=== PATIENT | female | born 1950 | race Caucasian/White ===

== ENCOUNTER 2016-08-29 18:01 | Emergency (ER) | payer MEDICARE, BC ==
[2016-08-29] MEDS ORDERED: diazePAM INJ 5 MG/ML SYRINGE IVP STA (20:36)
[2016-08-29] MEDS ORDERED: PRAMIPEXOLE 0.25 MG TABLET PO STA (20:36)
[2016-08-29] MEDS ORDERED: NITROFURANTOIN MACRO 100 MG CAPSULE PO STA (21:01)
[2016-08-29] MEDS ORDERED: NITROFURANTOIN MACRO 100 MG CAPSULE PO ONE (21:04)
[2016-08-29] MEDS ORDERED: diazePAM INJ 5 MG/ML SYRINGE ONE (21:04)
== END 2016-08-29 21:26 | disposition home or self-care (01) ==
DX: R53.82 Chronic fatigue, unspecified (principal); N30.90 Cystitis, unspecified without hematuria; R06.00 Dyspnea, unspecified; G25.81 Restless legs syndrome; E03.9 Hypothyroidism, unspecified; D64.9 Anemia, unspecified; Z91.14 Patient's other noncompliance with medication regimen
CPT/HCPCS: 36415; 71020; 80053; 81001; 83690; 84484; 85025; 85379; 87086; 93005; 93010; 96374; 99283; 99284; A9270

== ENCOUNTER 2016-11-17 18:12 | Emergency (ER) | payer MEDICARE, BC ==
[2016-11-17] MEDS ORDERED: ACETAMINOPHEN 325 MG TABLET PO STA (18:31)
[2016-11-17] MEDS ORDERED: ACETAMINOPHEN 325 MG TABLET PO ONE (18:38)
[2016-11-17] MEDS ORDERED: HYDROcod/ACET 5/325 Prepack 6 PO STA (20:04)
[2016-11-17] MEDS ORDERED: HYDROcod/ACET 5/325 Prepack 6 PO ONE (20:06)
== END 2016-11-17 20:12 | disposition home or self-care (01) ==
DX: S50.01XA Contusion of right elbow, initial encounter (principal); W11.XXXA Fall on and from ladder, initial encounter; Y92.018 Other place in single-family (private) house as the place of occurrence of the external cause; R03.0 Elevated blood-pressure reading, without diagnosis of hypertension; Z98.84 Bariatric surgery status; M79.7 Fibromyalgia; E03.9 Hypothyroidism, unspecified; Z98.1 Arthrodesis status
CPT/HCPCS: 70450; 72100; 72125; 73070; 99283; 99284; A9270

== ENCOUNTER 2016-11-25 22:10 | Emergency (ER) | payer MEDICARE, BC ==
[2016-11-25] MEDS ORDERED: LORazepam 0.5 MG TABLET PO STA (22:45)
[2016-11-25] MEDS ORDERED: LORazepam 0.5 MG TABLET ONE (22:51)
[2016-11-25] MEDS ORDERED: diazePAM INJ 5 MG/ML SYRINGE IM STA (23:48)
[2016-11-25] MEDS ORDERED: diazePAM INJ 5 MG/ML SYRINGE ONE (23:56)
[2016-11-26] MEDS ORDERED: HYDROmorphone 1 MG/ML SYRINGE IM STA (00:43)
[2016-11-26] MEDS ORDERED: HYDROmorphone 1 MG/ML SYRINGE ONE (00:44)
[2016-11-26] MEDS ORDERED: HYDROcod/ACET 5/325 Prepack 6 PO STA (01:56)
[2016-11-26] MEDS ORDERED: HYDROcod/ACET 5/325 Prepack 6 PO ONE (01:59)
== END 2016-11-26 02:09 | disposition home or self-care (01) ==
DX: G25.81 Restless legs syndrome (principal); T42.8X6A Underdosing of antiparkinsonism drugs and other central muscle-tone depressants, initial encounter; Z91.138 Patient's unintentional underdosing of medication regimen for other reason; E03.9 Hypothyroidism, unspecified; M79.7 Fibromyalgia
CPT/HCPCS: 81003; 96372; 99283; 99284; A9270; J1170

== ENCOUNTER 2016-12-24 10:51 | Outpatient (CLI) | payer MEDICARE, BC | END 2016-12-24 10:52 | disposition home or self-care (01) | DX: K90.9 Intestinal malabsorption, unspecified (principal); E03.9 Hypothyroidism, unspecified; Z98.84 Bariatric surgery status; D50.9 Iron deficiency anemia, unspecified ==

== ENCOUNTER 2017-01-11 11:05 | Emergency (ER) | payer MEDICARE, BC ==
--- NOTE | 2017-01-11 13:23 | ED Physician Documentation ---
PD HPI CHEST PAIN - Stated complaint Stated Complaint: SOA/CHEST PRESSURE - Chief complaint Chief Complaint: Cardiac - History obtained from History obtained from: Patient, Family - History of Present Illness Timing - onset: How many months ago (5) Timing - onset during: Light activity Timing - duration: Minutes Timing - details: Abrupt onset, Waxing and waning Quality: Pressure, Tightness Location: Substernal Improved by: Rest Worsened by: Exertion Associated symptoms: Shortness of air Similar symptoms before: No diagnosis Recently seen: Clinic (Seen in the clinic recently and has had an iron infusion done yesterday) - Additional information Additional information: 66 y/o female with a history of gastric bypass has developed exertional dyspnea and chest pressure that is reproducible and predictable. This had not changed in the past 4-5 months. She did get an iron infusion yesterday in the [facility] clinic and today she as hurting all over. When she called the clinic and told them about the pains she was told that this was expected but not the shortness of breath and they have asked her to come to the ED for evaluation. She has had a treadmill test done in [facility] in 2014 and she reports she was told she had afib. Review of Systems Constitutional: reports: Myalgias. denies: Fever, Chills Eyes: denies: Decreased vision Ears: denies: Ear pain Nose: denies: Rhinorrhea / runny nose, Congestion Throat: denies: Sore throat Cardiac: reports: Chest pain / pressure. denies: Palpitations, Pedal edema, Calf pain Respiratory: reports: Dyspnea. denies: Cough, Wheezing GI: denies: Abdominal Pain, Nausea, Vomiting : denies: Dysuria, Frequency Skin: denies: Rash Musculoskeletal: denies: Neck pain, Back pain, Extremity pain Neurologic: reports: Generalized weakness. denies: Focal weakness PD PAST MEDICAL HISTORY - Past Medical History Cardiovascular: None Respiratory: None Neuro: None Endocrine/Autoimmune: HyPOthyroidism GI: Diverticulitis INDUSTRIAL ECONOMIST: None : None HEENT: None Psych: Depression Musculoskeletal: Fibromyalgia Derm: None - Past Surgical History Past Surgical History: Yes General: Appendectomy, Gastric surgery Ortho: Knee replacement, Carpal Tunnel surgery, Spine surgery /INDUSTRIAL ECONOMIST: Hysterectomy - Present Medications Home Medications: Ambulatory Orders Medication Instructions Recorded Confirmed clonazePAM [KlonoPIN] 1 mg PO QPM PRN 04/28/16 11/25/16 Dextroamphetamine/Amphetamine 20 mg PO BID 06/14/16 11/25/16 [Adderall Xr 20 mg Capsule] Levothyroxine Sodium 125 mcg PO DAILY 06/14/16 11/25/16 Ergocalciferol [Vitamin D2] 50,000 unit PO Q7D #30 capsule 08/29/16 11/25/16 Furosemide [Lasix] 10 mg PO PRN 01/10/17 Gabapentin 300 mg PO DAILY 01/11/17 01/11/17 Ropinirole HCl [Ropinirole ER] 0.25 mg PO DAILY 01/11/17 01/11/17 - Allergies Allergies/Adverse Reactions: Allergies Allergy/AdvReac Type Severity Reaction Status Date / Time Penicillins Allergy Hives Verified 01/11/17 11:10 - Social History Does the pt smoke?: No Smoking Status: Never smoker Does the pt drink ETOH?: No Does the pt have substance abuse?: No - Immunizations Immunizations are current?: Yes - POLST Patient has POLST: No PD ED PE NORMAL - Vitals Vital signs reviewed: Yes (diastolic hypertension ) - General General: Alert and oriented X 3, Well developed/nourished, Other (teary eyed) - HEENT HEENT: Atraumatic, PERRL, EOMI - Neck Neck: Supple, no meningeal sign, No bony TTP - Cardiac Cardiac: RRR, No murmur - Respiratory Respiratory: No respiratory distress, Clear bilaterally, Other (no chest wall tenderness) - Abdomen Abdomen: Soft, Non tender - Back Back: No CVA TTP, No spinal TTP - Derm Derm: Normal color, Warm and dry, No rash - Extremities Extremities: No deformity, No edema - Neuro Neuro: No motor deficit, No sensory deficit - Psych Psych: Other (mood is helpless and the affect is flat ) Results - Vitals Vitals: Vital Signs - 24 hr 01/11/17 01/11/17 01/11/17 11:07 13:26 14:30 Temperature 36.5 C Heart Rate 85 71 72 Respiratory 18 12 16 Rate Blood Pressure 119/81 H 144/91 H 141/92 H O2 Saturation 100 97 95 01/11/17 15:15 Temperature Heart Rate 89 Respiratory 16 Rate Blood Pressure 125/76 O2 Saturation 96 Oxygen O2 Source Room air - EKG (time done) 1122 Rate: Rate (enter#) (77) Rhythm: NSR Ischemia: Normal ST segments Compare to prior EKG: Unchanged from prior EKG (08-29-16) Computer interpretation: Agree with computer - Labs Labs: Laboratory Tests 01/11/17 01/11/17 01/11/17 11:25 11:25 11:25 WBC 5.1 RBC 3.61 L Hgb 8.5 L Hct 27.1 L MCV 75.0 L MCH 23.5 L MCHC 31.3 L RDW 15.9 H Plt Count 249 MPV 9.4 Neut # 2.8 Lymph # 1.4 L [place] # 0.6 Eos # 0.2 Baso # 0.1 Absolute Nucleated RBC 0.00 Nucleated RBCs 0.1 Sodium 141 Potassium 3.9 Chloride 109 Carbon Dioxide 25 Anion Gap 7.0 BUN 15 Creatinine 0.6 Estimated GFR (MDRD) 101 Glucose 68 L Calcium 9.3 Total Bilirubin 0.9 AST 24 ALT 12 Alkaline Phosphatase 133 H Troponin I < 0.04 B-Natriuretic Peptide Total Protein 7.0 Albumin 3.8 Globulin 3.2 Albumin/Globulin Ratio 1.2 Lipase 20 L 01/11/17 11:25 WBC RBC Hgb Hct MCV MCH MCHC RDW Plt Count MPV Neut # Lymph # [place] # Eos # Baso # Absolute Nucleated RBC Nucleated RBCs Sodium Potassium Chloride Carbon Dioxide Anion Gap BUN Creatinine Estimated GFR (MDRD) Glucose Calcium Total Bilirubin AST ALT Alkaline Phosphatase Troponin I B-Natriuretic Peptide 133 H Total Protein Albumin Globulin Albumin/Globulin Ratio Lipase - Rads (name of study) 2 view chest Radiology: Prelim report reviewed (Impression: Stable examination with no acute or significant abnormality.), EMP read indepedently, See rad report PD MEDICAL DECISION MAKING - ED course Complexity details: reviewed old records, reviewed results, re-evaluated patient , considered differential, d/w patient, d/w family ED course: 66 y/o female with an iron infusion yesterday for chronic anemia has overall body aches today and does not feel well. She is here today because when she called about the pains she was having she was referred here as she has chest pain and shortness of breath. The chest pain and shortness of breath appear unchanged by history of months and this does seem to be an anginal equivalent. I have recommended she see a waredresser about this and we treated her discomfort from the iron infusion with decadron and toradal. Departure - Departure Disposition: 01 Home, Self Care Clinical Impression: Stable angina Anemia Qualifiers: Anemia type: iron deficiency Iron deficiency anemia type: inadequate dietary iron intake Qualified Code(s): D50.8 - Other iron deficiency anemias Condition: Stable Instructions: ED Chest Pain Angina Stable, ED Anemia Iron Deficiency Follow-Up: Ailin Melendez ARNP [Primary Care Provider] - Comments: Talk to your doctor about a referral to the waredresser for evaluation. Discharge Date/Time: 01/11/17 15:16
--- NOTE | 2017-01-11 13:50 | XRAY Preliminary Report ---
Exam: XR Chest 2 View PA/LAT IMPRESSION: Stable examination with no acute or significant abnormality. [id number]
--- NOTE | 2017-01-11 13:52 | XRAY Report ---
EXAM: CHEST RADIOGRAPHY EXAM DATE: 01/11/2017 01:41 PM. CLINICAL HISTORY: Dyspnea, chest pressure. COMPARISON: CHEST RADIOGRAPHY 08/29/2016. TECHNIQUE: 2 views. FINDINGS: Lungs/Pleura: No focal opacities evident. No pleural effusion. No pneumothorax. No vascular congestio n. Normal volumes. Mediastinum: Heart and mediastinal contours are unremarkable. Other: Upper lumbar posterior instrumental fusion. Bilateral shoulder surgeries. IMPRESSION: Stable examination with no acute or significant abnormality. [facility] Referring Provider Line: [phone] SITE ID: [id number]
[2017-01-11 14:00] LABS: BASOPHILS # (AUTO) 0.1 10^3/uL (0.0-0.1); BASOPHILS % (AUTO) 1.3 %; EOSINOPHILS # (AUTO) 0.2 10^3/uL (0.0-0.7); EOSINOPHILS % (AUTO) 3.5 %; HCT - HEMATOCRIT 27.1 % (37.0-47.0); HGB - HEMOGLOBIN 8.5 g/dL (12.0-16.0); LYMPHOCYTES # (AUTO) 1.4 10^3/uL (1.5-3.5); LYMPHOCYTES % (AUTO) 27.1 %; MEAN CORPUSCULAR HEMOGLOBIN 23.5 pg (27.0-31.0); MEAN CORPUSCULAR HGB CONC 31.3 g/dL (32.0-36.0); MEAN PLATELET VOLUME 9.4 fL (7.9-10.8); MONOCYTES # (AUTO) 0.6 10^3/uL (0.0-1.0); MONOCYTES % (AUTO) 12.1 %; NEUTROPHILS # (AUTO) 2.8 10^3/uL (1.5-6.6); NUCLEATED RED BLOOD CELLS AUTO 0.1 /100WBC; RED BLOOD COUNT 3.61 10^6/uL (4.20-5.40); RED CELL DISTRIBUTION WIDTH 15.9 % (12.0-15.0); UNCORRECTED WHITE BLOOD COUNT 5.1 x10^3/uL; WHITE BLOOD COUNT 5.1 x10^3/uL (4.8-10.8)
[2017-01-11 14:10] LABS: ALBUMIN/GLOBULIN RATIO 1.2 (1.0-2.2); BILIRUBIN,TOTAL 0.9 mg/dL (0.2-1.0); CALCIUM 9.3 mg/dL (8.5-10.3); CREATININE 0.6 mg/dL (0.4-1.0); POTASSIUM 3.9 mmol/L (3.5-5.0)
[2017-01-11] MEDS ORDERED: DEXAMETHASONE 10 MG/ML VIAL IVP STA (14:34)
[2017-01-11] MEDS ORDERED: KETOROLAC 60 MG/2 ML VIAL IVP STA (14:39)
[2017-01-11] MEDS ORDERED: DEXAMETHASONE 10 MG/ML VIAL ONE (14:40)
[2017-01-11] MEDS ORDERED: KETOROLAC 30 MG/ML VIAL ONE (14:40)
[2017-01-11 15:16] VITALS: BP 125/76
== END 2017-01-11 15:16 | disposition home or self-care (01) ==
LOC: ED 11:05
DX: I20.8 Other forms of angina pectoris (principal); I10 Essential (primary) hypertension; E03.9 Hypothyroidism, unspecified; D50.8 Other iron deficiency anemias; F32.9 Major depressive disorder, single episode, unspecified; Z98.84 Bariatric surgery status; Z98.0 Intestinal bypass and anastomosis status; Z90.710 Acquired absence of both cervix and uterus; Z88.0 Allergy status to penicillin; Z96.659 Presence of unspecified artificial knee joint
CPT/HCPCS: 36415; 71020; 80053; 83690; 83880; 84484; 85025; 93005; 93010; 96374; 96375; 99283; 99284

== ENCOUNTER 2017-02-12 09:20 | Outpatient (CLI) | payer MEDICARE, BC ==
[2017-02-12 18:18] LABS: BASOPHILS # (AUTO) 0.1 10^3/uL (0.0-0.1); BASOPHILS % (AUTO) 1.2 %; EOSINOPHILS # (AUTO) 0.1 10^3/uL (0.0-0.7); EOSINOPHILS % (AUTO) 1.3 %; HCT - HEMATOCRIT 37.9 % (37.0-47.0); LYMPHOCYTES # (AUTO) 1.5 10^3/uL (1.5-3.5); LYMPHOCYTES % (AUTO) 27.6 %; MEAN CORPUSCULAR HEMOGLOBIN 28.2 pg (27.0-31.0); MEAN CORPUSCULAR HGB CONC 31.6 g/dL (32.0-36.0); MEAN CORPUSCULAR VOLUME 89.4 fL (81.0-99.0); MEAN PLATELET VOLUME 8.3 fL (7.9-10.8); MONOCYTES # (AUTO) 0.3 10^3/uL (0.0-1.0); MONOCYTES % (AUTO) 6.4 %; NEUTROPHILS # (AUTO) 3.4 10^3/uL (1.5-6.6); NEUTROPHILS % (AUTO) 63.5 %; NUCLEATED RED BLOOD CELLS AUTO 0.2 /100WBC; RED BLOOD COUNT 4.24 10^6/uL (4.20-5.40); RED CELL DISTRIBUTION WIDTH 27.6 % (12.0-15.0); UNCORRECTED WHITE BLOOD COUNT 5.3 x10^3/uL; WHITE BLOOD COUNT 5.3 x10^3/uL (4.8-10.8)
[2017-02-12 18:23] LABS: ALBUMIN/GLOBULIN RATIO 1.5 (1.0-2.2); BILIRUBIN,TOTAL 0.4 mg/dL (0.2-1.0); CALCIUM 9.8 mg/dL (8.5-10.3); CREATININE 0.8 mg/dL (0.4-1.0); MAGNESIUM 1.9 mg/dL (1.7-2.8); POTASSIUM 4.9 mmol/L (3.5-5.0); TOTAL PROTEIN 7.6 g/dL (6.7-8.2)
[2017-02-12 18:51] LABS: PLATELET ESTIMATE, MANUAL NORMAL (130-450,000) (NORMAL); PLATELET MORPHOLOGY NORMAL APPEARANCE (NORMAL)
== END 2017-02-12 09:21 | disposition home or self-care (01) ==
LOC: LAB.F 09:20
PROVIDERS: ATTEND Internal Medicine
DX: R25.2 Cramp and spasm (principal); D50.9 Iron deficiency anemia, unspecified
CPT/HCPCS: 36415; 80053; 83735; 84443; 85025

== ENCOUNTER 2017-03-21 10:24 | Outpatient (CLI) | payer MEDICARE, BC ==
[2017-03-21] MEDS ORDERED: ADENOSINE 90 MG/30 ML VIAL IVP ONE (13:15)
--- NOTE | 2017-03-21 15:31 | CARDIAC PROCEDURE NOTE ---
DATE OF SERVICE: 03/21/2017 00:00:00 PRIMARY CARE PROVIDER: Dr. Martínez PROCEDURE: Pharmacologic stress test. PROCEDURE SYMPTOMS: Chest pain. PREVIOUS CARDIAC RISK FACTORS: Include age and family history. PREVIOUS CARDIAC PROCEDURES: Stress test 7 years ago. CLINICAL HISTORY: A 66-year-old female without known coronary artery disease. INITIAL RESTING VITAL SIGNS: Blood pressure 120/76, heart rate 63, height 66 inches, weight 175 pounds, BMI 28.24. PROCEDURE AND FINDINGS: The patient's identity and date identified. Consent signed. Safety stop. Pharmacological stress testing was performed with adenosine at a dose of 140 mcg/kg/minute over 6 minutes. The heart rate increased to 85 beats per minute from the infusion. Blood pressure response was normal during the stress procedure. The patient developed symptoms which included chest pressure and generalized unpleasant feelings. The symptoms resolved spontaneously. The resting ECG demonstrated normal sinus rhythm with no ST or T-wave abnormalities. There was no ST segment depression. There was one PAC. FINAL IMPRESSIONS: 1. Negative electrocardiogram for ischemia in the setting of vasodilator stress. 2. Nondiagnostic stress test for angina. 3. One PAC noted. 4. Await myocardial perfusion report. JOB #: [id number] EXT JOB #:[id number] [facility]
[2017-03-21 18:21] VITALS: BP 120/76
== END 2017-03-21 10:25 | disposition home or self-care (01) ==
LOC: DI 10:24
PROVIDERS: ATTEND Internal Medicine
DX: R07.89 Other chest pain (principal); Z96.9 Presence of functional implant, unspecified; G89.18 Other acute postprocedural pain
CPT/HCPCS: 78452; 93017; A9500; J0153

== ENCOUNTER 2017-05-01 09:45 | Emergency (ER) | payer MEDICARE, BC ==
[2017-05-01] MEDS ORDERED: SODIUM CHLORIDE FLUSH 0.9% 10 ML SYRINGE IVP ONE ×3 (11:50→19:16)
[2017-05-01] MEDS ORDERED: SODIUM CHLORIDE 0.9% 1,000 ML IV ONE (11:51)
[2017-05-01] MEDS ORDERED: LIDOCAINE PATCH 5% TOP STA (11:55)
[2017-05-01] MEDS ORDERED: oxyCOD/ACETAMIN 5 MG/325 MG TABLET PO STA (11:55)
[2017-05-01 11:58] LABS: BILIRUBIN,URINE NEGATIVE (NEGATIVE); UA w/ MICROSCOPIC CHARGE YES
[2017-05-01 11:59] LABS: UR CULTURE IF IND NOT INDICATED; WBC,URINE >25 /HPF (0-5)
[2017-05-01 12:15] LABS: BASOPHILS # (AUTO) 0.1 10^3/uL (0.0-0.1); BASOPHILS % (AUTO) 1.4 %; EOSINOPHILS # (AUTO) 0.1 10^3/uL (0.0-0.7); EOSINOPHILS % (AUTO) 0.9 %; HGB - HEMOGLOBIN 13.1 g/dL (12.0-16.0); LYMPHOCYTES # (AUTO) 1.8 10^3/uL (1.5-3.5); LYMPHOCYTES % (AUTO) 28.1 %; MEAN CORPUSCULAR HEMOGLOBIN 32.6 pg (27.0-31.0); MEAN CORPUSCULAR HGB CONC 33.5 g/dL (32.0-36.0); MEAN CORPUSCULAR VOLUME 97.2 fL (81.0-99.0); MEAN PLATELET VOLUME 7.4 fL (7.9-10.8); MONOCYTES # (AUTO) 0.5 10^3/uL (0.0-1.0); MONOCYTES % (AUTO) 8.1 %; NEUTROPHILS # (AUTO) 3.9 10^3/uL (1.5-6.6); NEUTROPHILS % (AUTO) 61.5 %; RED BLOOD COUNT 4.01 10^6/uL (4.20-5.40); UNCORRECTED WHITE BLOOD COUNT 6.3 x10^3/uL; WHITE BLOOD COUNT 6.3 x10^3/uL (4.8-10.8)
[2017-05-01] MEDS ORDERED: ONDANSETRON ODT 4 MG TABLET TL STA (12:18)
[2017-05-01] MEDS ORDERED: HYDROmorphone 1 MG/ML SYRINGE IM STA (12:18)
[2017-05-01] MEDS ORDERED: LORazepam 2 MG/ML SYRINGE IM STA (12:18)
[2017-05-01] MEDS ORDERED: HYDROmorphone 1 MG/ML SYRINGE ONE ×2 (12:24→13:24)
[2017-05-01] MEDS ORDERED: LORazepam 2 MG/ML SYRINGE ONE ×3 (12:25→18:12)
[2017-05-01 12:27] LABS: ALBUMIN/GLOBULIN RATIO 1.3 (1.0-2.2); BILIRUBIN,TOTAL 0.4 mg/dL (0.2-1.0); CALCIUM 9.2 mg/dL (8.5-10.3); CREATININE 0.8 mg/dL (0.4-1.0); POTASSIUM 4.7 mmol/L (3.5-5.0); TOTAL PROTEIN 7.2 g/dL (6.7-8.2)
--- NOTE | 2017-05-01 12:32 | ED Physician Documentation ---
History of Present Illness - Stated complaint Stated Complaint: BACK PAIN - Chief complaint Chief Complaint: Back Pain - Additonal information Additional information: hx from pt 2 CC 1) chronic back pain s/p fusion and diskectomies in [facility] 2004, increasing pain for months, loss f rectal sensation and fecal incont for at least a month, numbness to LLE laterally to upper fibula region and oswald great toes for at last a month, sx getting worse, now with subj fever and chills, states recently moved from [place] (but has numerous ER and PMD visits here), has no back specialist here 2) also NVD for days to a week, no blood, no bad food, no antibiotics, no sick contacts feels generally weak and lousy addendum - during ER stay she also developed a VELASQUEZ and chest pain Review of Systems Constitutional: reports: Fatigue. denies: Fever, Chills Cardiac: denies: Chest pain / pressure Respiratory: denies: Dyspnea, Cough GI: reports: Abdominal Pain (diffuse), Nausea, Vomiting, Diarrhea, Other (fecal incont) : denies: Dysuria Musculoskeletal: reports: Back pain Neurologic: reports: Numbness. denies: Focal weakness Endocrine: denies: Easy bruising / bleeding Immunocompromised: denies: Immunocompromised PD PAST MEDICAL HISTORY - Past Medical History Past Medical History: Yes Cardiovascular: None Respiratory: None Neuro: None Endocrine/Autoimmune: HyPOthyroidism GI: Diverticulitis UNDERWEAR CUTTER: None : None HEENT: None Psych: Depression, Anxiety, Panic attacks, ADD/ADHD Musculoskeletal: Fibromyalgia, Chronic back pain Derm: None - Past Surgical History Past Surgical History: Yes General: Cholecystectomy, Appendectomy, Gastric surgery Ortho: Knee replacement, Carpal Tunnel surgery, Spine surgery /UNDERWEAR CUTTER: Hysterectomy HEENT: Cataracts - Present Medications Home Medications: Ambulatory Orders Medication Instructions Recorded Confirmed clonazePAM [KlonoPIN] 1 mg PO QPM PRN 04/28/16 11/25/16 Dextroamphetamine/Amphetamine 20 mg PO BID 06/14/16 11/25/16 [Adderall Xr 20 mg Capsule] Levothyroxine Sodium 125 mcg PO DAILY 06/14/16 11/25/16 Ergocalciferol [Vitamin D2] 50,000 unit PO Q7D #30 capsule 08/29/16 11/25/16 Furosemide [Lasix] 10 mg PO PRN 01/10/17 Gabapentin 300 mg PO DAILY 01/11/17 01/11/17 Ropinirole HCl [Ropinirole ER] 0.25 mg PO DAILY 01/11/17 01/11/17 - Allergies Allergies/Adverse Reactions: Allergies Allergy/AdvReac Type Severity Reaction Status Date / Time Penicillins Allergy Hives Verified 01/11/17 11:10 - Social History Does the pt smoke?: No Smoking Status: Never smoker Does the pt drink ETOH?: No Does the pt have substance abuse?: No - Immunizations Immunizations are current?: Yes - POLST Patient has POLST: No PD ED PE NORMAL - Vitals Vital signs reviewed: Yes - General General: Alert and oriented X 3, Other (dry MM) - HEENT HEENT: PERRL - Neck Neck: Supple, no meningeal sign - Cardiac Cardiac: RRR, No murmur - Respiratory Respiratory: No respiratory distress, Clear bilaterally - Abdomen Abdomen: Soft, Other (mild diffuse TTP s rebound or guarding, no pulsatile mass appreciated) - Rectal Rectal: Other (see nuero exam, dec sensation) - Back Back: Other (extensive surgical scars, no forcal erythema or swelling or warmth , most tender over T10-T12 but through L5, limited ROM due to pain and fusion) - Derm Derm: Normal color - Extremities Extremities: No edema - Neuro Neuro: Alert and oriented X 3, No motor deficit, Other (decreased sensation inner buttocks and lateral L thigh, hip flexion, knee ext, foot dorsi plantar and great toe ext 5/5, no clonus, no leg pain with SLR but hurts her back). No : No sensory deficit Results - Vitals Vitals: Vital Signs - 24 hr 05/01/17 05/01/17 05/01/17 09:58 14:10 16:50 Temperature 36.6 C 36.1 C L Heart Rate 88 102 H 80 Respiratory 18 18 Rate Blood Pressure 115/60 161/100 H O2 Saturation 99 99 100 Oxygen O2 Source Room air - EKG (time done) 1449 Rate: Rate (enter#) Rhythm: NSR Intervals: Normal AL Ischemia: Normal ST segments - Labs Labs: Laboratory Tests 05/01/17 05/01/17 05/01/17 11:40 12:01 12:01 WBC 6.3 RBC 4.01 L Hgb 13.1 Hct 39.0 MCV 97.2 MCH 32.6 H MCHC 33.5 RDW 14.0 Plt Count 210 MPV 7.4 L Neut # 3.9 Lymph # 1.8 [place] # 0.5 Eos # 0.1 Baso # 0.1 Absolute Nucleated RBC 0.00 Nucleated RBCs 0.0 Sodium 139 Potassium 4.7 Chloride 104 Carbon Dioxide 29 Anion Gap 6.0 BUN 18 Creatinine 0.8 Estimated GFR (MDRD) 72 L Glucose 92 Calcium 9.2 Total Bilirubin 0.4 AST 25 ALT 16 Alkaline Phosphatase 102 Total Protein 7.2 Albumin 4.1 Globulin 3.1 Albumin/Globulin Ratio 1.3 Lipase 29 Urine Color YELLOW Urine Clarity CLOUDY Urine pH 6.0 Ur Specific [place] >=1.030 H Urine Protein NEGATIVE Urine Glucose (UA) NEGATIVE Urine Ketones TRACE Urine Occult Blood LARGE H Urine Nitrite NEGATIVE Urine Bilirubin NEGATIVE Urine Urobilinogen 1 (NORMAL) Ur Leukocyte Esterase MODERATE H Urine RBC 11-25 H Urine WBC >25 H Ur Squamous Epith Cells MOD Squamous H Urine Bacteria Moderate H Urine Mucus Few Strands Ur Microscopic Review INDICATED Urine Culture Comments NOT INDICATED - Rads (name of study) MRI T spine Radiology: See rad report (degen changes T9T10, intraforaminal disk herniations with potentially sig forminal stenosis L > R, no sig central canal stenosis or cord impingement, abn enhancement and edema in forminae and bone on both sides of arthritic disk space could be reactive 2/2 degen changes also consider infection and consider short term interval MRI, no abscess, prom) KUB Radiology: See rad report (no stones appreciated) CXR Radiology: See rad report (CP SOA) MRI L spine Radiology: See rad report (no sig central stonosis or cauda equina, prom defmormity and stenosis neural foramina oswald at L5S1 L > R, prom anterlolisthesis L5 on S1, degen disk dz and facet arthropathy, minimal non specific thickening of the ventral epidural space in the midline behind T12 vetebral body could be degen (or infectious per t spine report), extensive artifact from hardwar, no clear abscess or tumor, extensive signal and morphologic abn at the posterior paravertebral soft tissues including musculature at and below levels of surgery are non specific and potentially post op changes) PD MEDICAL DECISION MAKING - ED course ED course: pt went to MRI promptly but needed multiple dose of pain meds and anxiety meds to get her through the study upon return from MRI she developed a VELASQUEZ, then CP and SOA as well chart review indicates pt has been seen and evaluated for CP several times this year and had a neg myocardial perfusion scan in the last 4-6 weeks EKG not acute, trop unlikely to help for chest pain that started minutes ago, CXR neg CP resolved VELASQUEZ subsided spont is now mild, R frontal, feels like tension per pt diarrhea seems to have resolved - pt unable to provide sample UA + for some blood (KUB showed no stones, CT will to much artifact to be useful ) and some WBC and leuk est but large epis and pt denies urinary sx so would wait on culture before deciding if ab are needed so the only ongoing sig issue is the back pain with neuro deficits and subj fever / chills MRI T and L spine abnormal - see reports - also d/w rads - per verbal edema to bone marrow T9/10 looks more degen than infectious and there is minimal dural enhancement, T 12 disk extension also appears more likely degen than infection, and the extensive ST changes L2 down could be fatty atrophy and deinvertion changes after a large fusion but the radiologist was surprised by to see much signal this long after surgery pain still severe despite IV dilaudid given that pt has hard neuro sx will call [facility] or other tertiary care facility and req to transfer pt for a landscaping specialist to evaluate spoke to neuro at [facility] who reviewed the images and did not see anything that would explain the neuro sx pt complained of and found on exam - did agree with rad rec that rpt imaging in a few days might be helpful - was agreeable to having pt come to a teritary care facility for further work up and specialty care / eval not avail at our critical access hospital bu rec pt go to medicine service and so hospitalist accepts pt in transfer Departure - Departure Disposition: 02 Transfer Acute Care Hosp Clinical Impression: Saddle anesthesia, Abnormal MRI Back pain Qualifiers: Back pain location: low back pain Chronicity: unspecified Back pain laterality : midline Sciatica presence: unspecified whether sciatica present Qualified Code (s): M54.5 - Low back pain Fecal incontinence Qualifiers: Fecal incontinence type: unspecified Qualified Code(s): R15.9 - Full incontinence of feces Comments: Yir blood pressure was high and there is some blood in your urine - both these concerns will need further work up by your PMD Also you may have a urine infection - a culture is pending and we will call you if antibiotics are needed Discharge Date/Time: 05/01/17 19:34
[2017-05-01] MEDS ORDERED: HYDROmorphone 1 MG/ML SYRINGE IVP STA ×2 (12:41→13:13)
[2017-05-01] MEDS ORDERED: LORazepam 2 MG/ML SYRINGE IVP STA ×3 (12:41→17:58)
[2017-05-01] MEDS ORDERED: GADOBUTROL 7.5 MMOL/7.5 ML VIAL IVP ONE (13:33)
[2017-05-01] MEDS ORDERED: ONDANSETRON ODT 4 MG TABLET ONE (14:02)
[2017-05-01] MEDS ORDERED: LIDOCAINE PATCH 5% TOP ONE (14:15)
[2017-05-01] MEDS ORDERED: oxyCOD/ACETAMIN 5 MG/325 MG TABLET PO ONE (14:15)
--- NOTE | 2017-05-01 14:23 | MRI Preliminary Report ---
Exam: MRI Lumbar Spine W/WO Impression: 1. No significant lumbar central stenosis. 2. Prominent deformity and stenosis of neural foramina bilaterally at L5-S1 left greater than right. 3. Prominent anterolisthesis of L5 on S1 where there are findings of prominent degenerative disk dise ase and facet arthropathy. 4. Minimal nonspecific thickening of the ventral epidural space in the midline behind the T12 vertebr al body, this may be degenerative but there is no neural impingement. 5. Extensive magnetic susceptibility artifact from multilevel implanted fusion hardware. 6. No clear evidence for enhancing tumor or abscess. 7. Extensive signal and morphologic abnormality of the posterior paravertebral soft tissues including musculature, most evident at and below the levels of surgery, nonspecific potentially postoperative changes. [facility] SITE ID: [id number]
--- NOTE | 2017-05-01 14:26 | MRI Report ---
EXAM: MRI LUMBAR SPINE WITHOUT AND WITH CONTRAST EXAM DATE: 05/01/2017 12:30 PM. CLINICAL HISTORY: Back pain. Prior lumbar fusions and diskectomies. COMPARISONS: No prior MRI. TECHNIQUE: Multiplanar, multisequence T1-weighted and fluid-sensitive sequences of the lumbar spine f rom T12 to S1 before and after administration of intravenous contrast. IV contrast: Without a 5.5 mm Gadavist. Other: None. FINDINGS: Detailed evaluation is significantly limited by the presence of implanted metallic spinal fusion hard mcnally at multiple levels. Posterior celso and screw fusion hardware is present at L1, L2, L3, L4 and L5 levels. Interbody fusion cages or spacers are present in the intervertebral disk spaces at L2-L3, L3-L4 and L4-L5. The thoracic cord terminates without Conus impingement at T12-L1. Minimal residual L1 on L2 retrolist hesis. More prominent anterior subluxation by at least 1 cm of L5 on S1. No evidence for acute marrow edema or vertebral body collapse. No significant lumbar central stenosis. No cauda equina impingement. Minimal midline ventral epidural thickening extending upward from the T12-L1 disk space along the russel k wall of the T12 vertebral body. This extends up to 15 mm above the disk space level but is only 2 m m in thickness without significant mass effect, this is nonspecific. A small upward migrating disk he rniation might give this appearance. Prominent degenerative disk disease and facet arthropathy at L5-S1. Moderate to severe deformity and narrowing of both foramina at this level, left greater than right. No other clear evidence for significant lumbar stenosis allowing for extensive susceptibility artifac t from implanted metal hardware. Prominent diffuse posterior paraspinal muscle fatty atrophy and signal abnormality that is nonspecifi c and consistent with scar associated with previous surgery. No clear evidence for focal enhancing tumor mass or abscess. Impression: 1. No significant lumbar central stenosis. 2. Prominent deformity and stenosis of neural foramina bilaterally at L5-S1 left greater than right. 3. Prominent anterolisthesis of L5 on S1 where there are findings of prominent degenerative disk dise ase and facet arthropathy. 4. Minimal nonspecific thickening of the ventral epidural space in the midline behind the T12 vertebr al body, this may be degenerative but there is no neural impingement. 5. Extensive magnetic susceptibility artifact from multilevel implanted fusion hardware. 6. No clear evidence for enhancing tumor or abscess. 7. Extensive signal and morphologic abnormality of the posterior paravertebral soft tissues including musculature, most evident at and below the levels of surgery, nonspecific potentially postoperative changes. [facility] Referring Provider Line: [phone] SITE ID: [id number]
--- NOTE | 2017-05-01 14:42 | MRI Preliminary Report ---
Exam: MRI Thoracic Spine W/WO IMPRESSION: 1. Prominent degenerative changes are present at the T9-T10 level. Intraforaminal disk herniations ar e present with potentially significant foraminal stenosis left greater than right. No significant andres tral stenosis or cord impingement. There is abnormal enhancement and edema in the foramina and bone o n both sides of the arthritic disk space. While these findings likely represent reactive change secon kendra to degenerative arthritis, similar findings can be seen with infection and if there is additiona l concern for spine infection, short interval MRI follow-up could be considered. 2. No evidence for abscess. 3. Prominent multilevel degenerative thoracic spinal spondylosis with stenosis at multiple levels is present as detailed level by level above. 4. Mild broad-based thoracic dextroscoliosis. [facility] SITE ID: [id number]
--- NOTE | 2017-05-01 14:56 | XRAY Preliminary Report ---
Exam: XR Chest 1 View IMPRESSION: Grossly clear lungs. [facility] SITE ID: [id number]
--- NOTE | 2017-05-01 14:58 | XRAY Report ---
EXAM: CHEST RADIOGRAPHY EXAM DATE: 05/01/2017 02:43 PM. CLINICAL HISTORY: Chest pain soa. COMPARISON: 01/11/2017. TECHNIQUE: 1 view. FINDINGS: Lungs/Pleura: No focal opacities evident. No pleural effusion. No pneumothorax. Mediastinum: Within exam limitations, cardiomediastinal contour is normal. Other: Surgical screws in the bilateral humeral heads. IMPRESSION: Grossly clear lungs. [facility] Referring Provider Line: [phone] SITE ID: [id number]
--- NOTE | 2017-05-01 14:59 | MRI Report ---
EXAM: MRI THORACIC SPINE WITHOUT AND WITH CONTRAST EXAM DATE: 05/01/2017 01:59 p.m. CLINICAL HISTORY: Back pain reportedly from T10 through L5. Diarrhea. Previous multilevel lumbar fusi on. COMPARISONS: None. TECHNIQUE: Multiplanar, multisequence T1-weighted and fluid-sensitive sequences of the thoracic spine from C7 to L1 before and after administration of intravenous contrast. IV contrast: Without and with 5.5 mL Gadavist. Other: None. FINDINGS: Spinal Cord: No signal abnormality in the visualized spinal cord. Alignment: No focal malalignment. Mild broad-based dextroscoliosis centered at about the T8 level, ap proximately 15 degrees. Bone Marrow: Patchy and confluent edema with enhancement on both sides of the T9-T10 disk space, asym metric, most prominent laterally on the left. Disk Levels/Facets: C7-T1: Mild degenerative disk disease. Moderate facet arthropathy. Shallow bulging disk. Patent centr al canal. At least mild bilateral foraminal stenosis. T1-T2: Moderate degenerative disk disease. T2 superior endplate Schmorl's node, anterior marginal spu rring and a broad-based bulge. Minimal central stenosis. No cord impingement. Moderate facet arthropa thy. Intraforaminal extension of the broad-based bulge contributing to bilateral foraminal stenosis t hat may be moderate to severe, potentially worse on the right than the left. T2-T3: Mild degenerative disk disease. Minimal facet arthropathy. Right paracentral posterior disk pr otrusion with extension laterally into the inferior aspect of the right neural foramen. Foraminal marce nosis is mild. Negligible central canal narrowing. Patent left foramen. T3-T4: Mild degenerative changes including a shallow disk bulge to the right of midline. Mild right f oraminal stenosis. T4-T5: Mild degenerative disk disease and facet arthropathy but no focal extrusion or significant marce nosis. T5-T6: Mild degenerative changes including right, greater than left, facet arthropathy but no focal e xtrusion or evidence for significant stenosis. T6-T7: Mild degenerative changes. No stenosis. T7-T8: Mild degenerative changes but no significant stenosis. T8-T9: Mild to moderate degenerative disk disease. Shallow bulging disk with marginal spurring, asymm etric, more prominent to the left of midline. Mild facet arthropathy. Patent central canal and right foramen. Mild left foraminal stenosis. T9-T10: Disk space narrowing. Mild endplate irregularity. Marginal spurring. Broad-based disk bulge. Additional asymmetric intraforaminal disk herniation on the left. Mild central stenosis without cord compression from paracentral disk protrusions. Mild facet arthropathy. Foraminal stenosis is minimal on the right but at least moderate on the left. Edema and enhancement on both sides of the arthritic disk space are present, asymmetric, left greater than right. No accompanying paravertebral fluid jeff ection or inflammatory changes. No abnormal epidural fluid collection. There is increased enhancement in both foramina, left greater than right. This is notably accompanying the left intraforaminal disk herniation. T10-T11: Mild degenerative disk disease. Moderate facet arthropathy, left greater than right. Broad-b ased disk bulge is present with extension laterally into both foramina. Minimal central stenosis with out cord compression. Moderate to severe foraminal stenosis bilaterally especially on the left. T11-T12: Mild degenerative disk disease. Moderately prominent facet arthropathy. No focal disk extrus ion or significant stenosis. T12-L1: Mild degenerative disk disease. Moderate facet arthropathy. No significant stenosis. Mild luisa tral epidural space thickening behind the T12 vertebral body in the midline, nonspecific, a small dis k herniation might give this appearance, but there is no significant mass-effect or impingement of th e adjacent conus. Spinal Canal: No enhancing masses within the spinal canal. No epidural abscess. Musculature: Mild diffuse posterior paraspinal muscle fatty atrophy. Other: Multiple portions of this examination are significantly motion limited, including axial images . IMPRESSION: 1. Prominent degenerative changes are present at the T9-T10 level. Intraforaminal disk herniations ar e present with potentially significant foraminal stenosis, left greater than right. No significant ce ntral stenosis or cord impingement. There is abnormal enhancement and edema in the foramina and on yogesh th sides of the arthritic disk space. While these findings likely represent reactive change secondary to degenerative arthritis, similar findings can be seen with infection, and if there is additional c oncern for spine infection, short interval MRI follow-up could be considered. 2. No evidence for abscess. 3. Prominent multilevel degenerative thoracic spinal spondylosis with stenosis at multiple levels is present as detailed level by level above. 4. Mild broad-based thoracic dextroscoliosis. [facility] Referring Provider Line: [phone] SITE ID: [id number]
--- NOTE | 2017-05-01 15:42 | XRAY Preliminary Report ---
Exam: XR Abdomen 1 View IMPRESSION: Previous lumbar spine fusion. No acute abnormality. [facility] SITE ID: [id number]
--- NOTE | 2017-05-01 15:45 | XRAY Report ---
EXAM: ABDOMEN RADIOGRAPHY EXAM DATE: 05/01/2017 03:27 PM. CLINICAL HISTORY: UTI hematuria back pain. COMPARISON: None. TECHNIQUE: 1 view. FINDINGS: Bowel Gas Pattern: There is scattered gas within the bowel. There is a nonobstructive bowel gas patte rn. There are surgical clips in the right upper quadrant of the abdomen. No definite kidney stones. Other: Previous multilevel spine fusion hardware. There is a calcified phlebolith in the left pelvis which appears unchanged. IMPRESSION: Previous lumbar spine fusion. No acute abnormality. [facility] Referring Provider Line: [phone] SITE ID: [id number]
[2017-05-01 16:54] VITALS: BP 161/100
[2017-05-01] MEDS ORDERED: ACETAMINOPHEN 1,000 MG/100 ML 100 ML IV STA (17:04)
[2017-05-01] MEDS ORDERED: ACETAMINOPHEN 1,000 MG/100 ML 100 ML IV ONE (17:43)
== END 2017-05-01 19:34 | disposition short-term general hospital (02) ==
LOC: ED 09:45
DX: M54.5 Low back pain (principal); R15.9 Full incontinence of feces; R03.0 Elevated blood-pressure reading, without diagnosis of hypertension; G89.29 Other chronic pain; Z98.1 Arthrodesis status; Z96.659 Presence of unspecified artificial knee joint
CPT/HCPCS: 36415; 71010; 72157; 72158; 74000; 80053; 80306; 81001; 83690; 85025; 93005; 96361; 96374; 96375; 96376; 99283; 99284; A9270; A9585; J0131; J1170; J2060; Q0162; 81003; 87086

== ENCOUNTER 2017-05-01 19:23 | Outpatient (CLI) | payer MEDICARE, BC | END 2017-05-01 19:24 | disposition short-term general hospital (02) | LOC: EMS 19:23 | PROVIDERS: ATTEND Surgery | DX: M54.9 Dorsalgia, unspecified (principal) | CPT/HCPCS: A0170; A0425; A0426 ==

== ENCOUNTER 2017-06-02 15:33 | Emergency (ER) | payer MEDICARE, BC ==
[2017-06-02 15:49] VITALS: BP 119/85
--- NOTE | 2017-06-02 15:54 | ED Physician Documentation ---
PD HPI BACK PAIN - Stated complaint Stated Complaint: BACK PX - Chief complaint Chief Complaint: Back Pain - History obtained from History obtained from: Patient - History of Present Illness Timing - onset: How many days ago (chronic pain but worse the past several days without injury nor obvious preciiptating factor.) Location: Lower Quality: Pain, Aching Associated symptoms: No: Fever, Weakness, Numbness, Incontinent of urine Improves with: Rest (but still hurts when sitting) Worsened by: Movement, Twisting Contributing factors: No: Anticoagulated, Cancer Similar symptoms before: Diagnosis (prior low back surgery and has chronic pain there with radiation to legs.) Recently seen: Clinic (2 days ago and had increase of her gabapentin from 300 to 600 mg but no other meds/ no pain meds. Patient had a prior Fentanyl patch that she placed today and has not helped as yet. Had been to [facility] April due to concern of back pain and possible infection. She says she was there a few days and then discharged. No surgical interventions availalbe per pateint (Spine had seen her there). She did not get any abx. No new meds. Pain baseline 4-5/10 and the past couple days is 8/10. No new injury. 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 : None HEENT: None Psych: Depression, Anxiety, Panic attacks, ADD/ADHD Musculoskeletal: Fibromyalgia, Chronic back pain Derm: None - Past Surgical History Past Surgical History: Yes General: Cholecystectomy, Appendectomy, Gastric surgery Ortho: Knee replacement, Carpal Tunnel surgery, Spine surgery /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 MACHINE OPERATOR HELPER: Hysterectomy HEENT: Cataracts - Present Medications Home Medications: Ambulatory Orders Medication Instructions Recorded Confirmed clonazePAM [KlonoPIN] 1 mg PO QPM PRN 04/28/16 11/25/16 Dextroamphetamine/Amphetamine 20 mg PO BID 06/14/16 11/25/16 [Adderall Xr 20 mg Capsule] Levothyroxine Sodium 125 mcg PO DAILY 06/14/16 11/25/16 Ergocalciferol [Vitamin D2] 50,000 unit PO Q7D #30 capsule 08/29/16 11/25/16 Gabapentin 300 mg PO DAILY 01/11/17 01/11/17 Ropinirole HCl [Ropinirole ER] 0.25 mg PO DAILY 01/11/17 01/11/17 Dexamethasone [Decadron] 4 mg PO DAILY #5 tablet 06/02/17 Oxycodone HCl/Acetaminophen 1 each PO TID #30 tablet 06/02/17 [Percocet 7.5-325 mg Tablet] - Allergies Allergies/Adverse Reactions: Allergies Allergy/AdvReac Type Severity Reaction Status Date / Time Penicillins Allergy Hives Verified 06/02/17 15:42 - Social History Does the pt smoke?: No Smoking Status: Never smoker Does the pt drink ETOH?: No Does the pt have substance abuse?: No - Immunizations Immunizations are current?: Yes - POLST Patient has POLST: No PD ED PE NORMAL - Vitals Vital signs reviewed: Yes - General General: Alert and oriented X 3, Well developed/nourished, Other (appears uncomfortable and expresses frustration about lack of pain meds from PCP/ specialists. ) - Abdomen Abdomen: Soft, Non tender - Back Back: No CVA TTP, No spinal TTP, Other (tender in muscles low back both sides. ) - Derm Derm: Normal color, Warm and dry, No rash - Extremities Extremities: Normal ROM s pain, No edema - Neuro Neuro: Alert and oriented X 3, No motor deficit, Normal speech Results - Vitals Vitals: Vital Signs - 24 hr 06/02/17 15:38 Temperature 36.6 C Heart Rate 79 Respiratory 18 Rate Blood Pressure 119/85 H O2 Saturation 100 Oxygen O2 Source Room air PD MEDICAL DECISION MAKING - ED course Complexity details: reviewed old records, reviewed results, considered differential, d/w patient Departure - Departure Disposition: 01 Home, Self Care Clinical Impression: Acute exacerbation of chronic low back pain Sciatica Qualifiers: Laterality: unspecified laterality Qualified Code(s): M54.30 - Sciatica, unspecified side Condition: Stable Record reviewed to determine appropriate education?: Yes Instructions: ED Low Back Pain Injury Follow-Up: Tammy Quiroz MD [Primary Care Provider] - Prescriptions: Dexamethasone [Decadron] 4 mg PO DAILY #5 tablet Oxycodone HCl/Acetaminophen [Percocet 7.5-325 mg Tablet] 1 each PO TID #30 tablet Comments: Continue your current medications. Use oxycodone 3 times a day as needed for pain. Also add anti-inflammatory Decadron for 5 days for possible inflammation causing the increase over your usual pain. Follow-up with your primary care to continue with the pain treatments and they may consider referral to a pain clinic as well. Discharge Date/Time: 06/02/17 16:12
== END 2017-06-02 16:12 | disposition home or self-care (01) ==
LOC: ED 15:33
DX: M54.5 Low back pain (principal); G89.29 Other chronic pain; E03.9 Hypothyroidism, unspecified; Z96.659 Presence of unspecified artificial knee joint
CPT/HCPCS: 99283

== ENCOUNTER 2017-08-11 12:36 | Emergency (ER) | payer MEDICARE, BC ==
[2017-08-11 12:59] LABS: BASOPHILS # (AUTO) 0.1 10^3/uL (0.0-0.1); BASOPHILS % (AUTO) 1.1 %; EOSINOPHILS # (AUTO) 0.1 10^3/uL (0.0-0.7); EOSINOPHILS % (AUTO) 1.6 %; HCT - HEMATOCRIT 38.2 % (37.0-47.0); HGB - HEMOGLOBIN 13.1 g/dL (12.0-16.0); MEAN CORPUSCULAR HEMOGLOBIN 33.4 pg (27.0-31.0); MEAN CORPUSCULAR HGB CONC 34.1 g/dL (32.0-36.0); MEAN CORPUSCULAR VOLUME 97.8 fL (81.0-99.0); MEAN PLATELET VOLUME 7.1 fL (7.9-10.8); MONOCYTES # (AUTO) 0.6 10^3/uL (0.0-1.0); MONOCYTES % (AUTO) 7.9 %; NEUTROPHILS # (AUTO) 4.6 10^3/uL (1.5-6.6); NEUTROPHILS % (AUTO) 62.4 %; RED BLOOD COUNT 3.91 10^6/uL (4.20-5.40); RED CELL DISTRIBUTION WIDTH 13.3 % (12.0-15.0); UNCORRECTED WHITE BLOOD COUNT 7.4 x10^3/uL; WHITE BLOOD COUNT 7.4 x10^3/uL (4.8-10.8)
[2017-08-11 13:10] LABS: ALBUMIN/GLOBULIN RATIO 1.5 (1.0-2.2); BILIRUBIN,TOTAL 0.6 mg/dL (0.2-1.0); CALCIUM 9.4 mg/dL (8.5-10.3); CREATININE 0.9 mg/dL (0.4-1.0); POTASSIUM 4.5 mmol/L (3.5-5.0); TOTAL PROTEIN 7.6 g/dL (6.7-8.2)
--- NOTE | 2017-08-11 14:09 | ED Physician Documentation ---
PD HPI ABD PAIN - Stated complaint Stated Complaint: DIARRHEA/WEAK - Chief complaint Chief Complaint: Abd Pain - History obtained from History obtained from: Patient - History of Present Illness Timing - onset: How many days ago (2-3) Timing - duration: Days (2-3) Timing - details: Abrupt onset, Still present Quality: Cramping, Aching Location: All over / everywhere, Periumbilical Improved by: No: Eating, Vomiting Worsened by: Eating, Palpation Associated symptoms: Nausea, Vomiting, Diarrhea, Loss of appetite. No: Fever, Melena, Dysuria, Hematuria, Chest pain, Near syncope / syncope Similar symptoms before: Has not had sx before Recently seen: Not recently seen Review of Systems Constitutional: reports: Chills, Myalgias. denies: Fever Nose: denies: Rhinorrhea / runny nose, Congestion Throat: denies: Sore throat GI: reports: Nausea, Vomiting, Diarrhea. denies: Bloody / black stool : denies: Dysuria, Frequency Skin: denies: Rash, Lesions Neurologic: reports: Generalized weakness. 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 CLEANER: Hysterectomy HEENT: Cataracts - Present Medications Home Medications: Ambulatory Orders Medication Instructions Recorded Confirmed clonazePAM [KlonoPIN] 1 mg PO QPM PRN 04/28/16 11/25/16 Dextroamphetamine/Amphetamine 20 mg PO BID 06/14/16 11/25/16 [Adderall Xr 20 mg Capsule] Levothyroxine Sodium 125 mcg PO DAILY 06/14/16 11/25/16 Ergocalciferol [Vitamin D2] 50,000 unit PO Q7D #30 capsule 08/29/16 11/25/16 Gabapentin 300 mg PO DAILY 01/11/17 01/11/17 Ropinirole HCl [Ropinirole ER] 0.25 mg PO DAILY 01/11/17 01/11/17 Dexamethasone [Decadron] 4 mg PO DAILY #5 tablet 06/02/17 Oxycodone HCl/Acetaminophen 1 each PO TID #30 tablet 06/02/17 [Percocet 7.5-325 mg Tablet] Diphenoxylate HCl/Atropine 1 each PO Q6H PRN #12 tablet 08/11/17 [Diphenoxylate-Atrop 2.5-0.025] HYDROcod/ACETAM 5/325 [Barton 5/325] 1 tab PO Q6H PRN #12 tablet 08/11/17 Ondansetron Odt [Zofran] 4 mg TL Q6H PRN #15 tablet 08/11/17 - Allergies Allergies/Adverse Reactions: Allergies Allergy/AdvReac Type Severity Reaction Status Date / Time Penicillins Allergy Hives Verified 08/11/17 12:42 - Social History Does the pt smoke?: No Smoking Status: Never smoker Does the pt drink ETOH?: No Does the pt have substance abuse?: No - Immunizations Immunizations are current?: Yes - POLST Patient has POLST: No PD ED PE NORMAL - Vitals Vital signs reviewed: Yes - General General: Alert and oriented X 3, Well developed/nourished - HEENT HEENT: Ears normal, Pharynx benign. No: Moist mucous membranes - Neck Neck: Supple, no meningeal sign, No adenopathy - Cardiac Cardiac: RRR, No murmur - Respiratory Respiratory: Clear bilaterally - Abdomen Abdomen: Soft, Non distended, No organomegaly, Other (some tenderness centrally without guarding nor distension. ). No: Normal bowel sounds (diminished) - Female Female : Deferred - Rectal Rectal: Deferred - Back Back: No CVA TTP - Derm Derm: Normal color, No rash - Neuro Neuro: Alert and oriented X 3, No motor deficit, Normal speech Results - Vitals Vitals: Oxygen O2 Source Room air - Labs Labs: Laboratory Tests 08/11/17 08/11/17 08/11/17 12:40 12:53 12:53 WBC 7.4 RBC 3.91 L Hgb 13.1 Hct 38.2 MCV 97.8 MCH 33.4 H MCHC 34.1 RDW 13.3 Plt Count 243 MPV 7.1 L Neut # 4.6 Lymph # 2.0 [place] # 0.6 Eos # 0.1 Baso # 0.1 Absolute Nucleated RBC 0.00 Nucleated RBC % 0.0 Sodium 138 Potassium 4.5 Chloride 103 Carbon Dioxide 26 Anion Gap 9.0 BUN 23 H Creatinine 0.9 Estimated GFR (MDRD) 63 L Glucose 145 H Calcium 9.4 Total Bilirubin 0.6 AST 26 ALT 18 Alkaline Phosphatase 107 Total Protein 7.6 Albumin 4.5 Globulin 3.1 Albumin/Globulin Ratio 1.5 Lipase 24 Influenza A (Rapid) Negative Influenza B (Rapid) Negative Influenza Types A,B Ag - - Rads (name of study) abd CT Radiology: Prelim report reviewed (no acute process; stable size of intrahepatic ducts (enlarged). ), EMP read contemporaneously PD MEDICAL DECISION MAKING - ED course Complexity details: re-evaluated patient (seems improved with IV fluids and meds. No acute on CT nor labs, so presume viral GE or such. ), considered differential, d/w patient Departure - Departure Disposition: 01 Home, Self Care Clinical Impression: Nausea vomiting and diarrhea Abdominal pain Qualifiers: Abdominal location: generalized Qualified Code(s): R10.84 - Generalized abdominal pain Condition: Stable Record reviewed to determine appropriate education?: Yes Instructions: ED Abdominal Pain Unkn Cause, ED Nausea Vomiting Follow-Up: Tammy Quiroz MD [Primary Care Provider] - Prescriptions: Diphenoxylate HCl/Atropine [Diphenoxylate-Atrop 2.5-0.025] 1 each PO Q6H PRN # 12 tablet PRN Reason: Diarrhea HYDROcod/ACETAM 5/325 [Barton 5/325] 1 tab PO Q6H PRN #12 tablet PRN Reason: Pain Ondansetron Odt [Zofran] 4 mg TL Q6H PRN #15 tablet PRN Reason: Nausea / Vomiting Comments: Your CT scan did not show any significant abnormality. There are things that will not show on that such as a viral stomach flu. This may be what is going on and presumably that should improve in the next day or 2. Use ondansetron if needed for nausea. Small frequent fluids. Lomotil if needed for diarrhea. Add Tylenol or hydrocodone if needed for pain. Recheck if not improved over the next couple of days. Return sooner if worse. Discharge Date/Time: 08/11/17 17:14
[2017-08-11] MEDS ORDERED: ONDANSETRON 4 MG/2 ML VIAL IVP STA (14:25)
[2017-08-11] MEDS ORDERED: KETOROLAC 60 MG/2 ML VIAL IVP STA (14:25)
[2017-08-11] MEDS: SODIUM CHLORIDE 0.9% 1,000 ML IV ONE ×2 (14:33→15:40)
[2017-08-11] MEDS ORDERED: IOPAMIDOL-300 100 ML VIAL ONE (14:34)
[2017-08-11] MEDS: HYDROmorphone 1 MG/ML SYRINGE IVP STA ×2 (14:36→15:40)
[2017-08-11] MEDS ORDERED: IOPAMIDOL-300 100 ML VIAL IVP ONE (15:02)
[2017-08-11] MEDS ORDERED: SODIUM CHLORIDE 0.9% 1,000 ML IV ONE (15:27)
[2017-08-11] MEDS ORDERED: HYDROmorphone 1 MG/ML SYRINGE IVP STA (15:27)
--- NOTE | 2017-08-11 15:42 | CT Report ---
EXAM: CT ABDOMEN AND PELVIS EXAM DATE: 08/11/2017 03:01 PM. CLINICAL HISTORY: Mid abd pain and diarrhea. COMPARISONS: Abdomen and pelvis CT 05/15/2016. TECHNIQUE: Routine helical CT imaging was performed through the abdomen and pelvis. IV contrast: 100M L OF ISOVUE 300. Enteric contrast: No. Reconstructions: Coronal and sagittal. In accordance with CT protocol optimization, one or more of the following dose reduction techniques w ere utilized for this exam: automated exposure control, adjustment of mA and/or KV based on patient s ize, or use of iterative reconstructive technique. FINDINGS: Lung Bases: Mild bibasilar dependent atelectasis. Normal heart size. No pericardial effusion. Bilateral breast implants. Liver: Normal parenchyma Gallbladder/Bile Ducts: Post cholecystectomy. Stable moderate central intrahepatic biliary ductal dil atation. Dilatation of the common bile duct up to 13 mm, stable when remeasured. Common bile duct tap ers normally distally. Spleen: Normal. Pancreas: Normal. Adrenal Glands: Normal. Kidneys: Hypoattenuating foci in the kidneys, too small to definitively characterize, statistically c ysts. Peritoneal Cavity/Bowel: Stable changes of prior gastric surgery. Small and large bowel normal in allen iber without evidence of inflammation or obstruction. No ascites or pneumoperitoneum. Surgical clip o r calcification at the umbilicus, new. Heterotopic ossification and linear soft tissue attenuation at the flanks/buttocks right greater than left may be related to sequelae of prior procedure/trauma. Pelvic Organs: Normal urinary bladder Vasculature: Moderate aortobiiliac atherosclerosis without aneurysm Bones: Posterior diskectomy and instrument spinal fusion procedure of L1-L5 with paired vertical rods , pedicular screws L1-L5 and interbody bone cages L2-L3 through L4-L5. Severe degenerative disk disea se L5-S1 with grade 2 anterolisthesis of L5 on S1, stable. Stable 5 mm retrolisthesis L1 on L2, stab le mild dextrocurvature of the thoracic spine and mild levocurvature of the lumbar spine. Other: None. IMPRESSION: 1. No acute abnormality on abdomen and pelvis CT. 2. Unchanged moderate intra-and extrahepatic biliary ductal dilatation, which may be related to the p atient's postcholecystectomy state. If there is clinical/laboratory evidence of biliary obstruction, further evaluation may be obtained with MRCP. 3. Prior gastric surgery. [facility] Referring Provider Line: [phone] SITE ID: [id number]
[2017-08-11 17:01] VITALS: BP 141/81
== END 2017-08-11 17:14 | disposition home or self-care (01) ==
LOC: ED 12:36
DX: R11.2 Nausea with vomiting, unspecified (principal); R19.7 Diarrhea, unspecified; E03.9 Hypothyroidism, unspecified; Z96.659 Presence of unspecified artificial knee joint
CPT/HCPCS: 36415; 74177; 80053; 83690; 85025; 87275; 87276; 96361; 96374; 96375; 99283; 99284; J1170; Q9967

== ENCOUNTER 2017-12-06 08:06 | Outpatient (CLI) | payer MEDICARE, BC ==
--- NOTE | 2017-12-09 13:13 | DEXA Report ---
DEXA SCAN: INDICATION: Postmenopausal. TECHNIQUE: Dual energy x-ray absorptiometry (DXA) was performed on a [employer] system. Regions measured are the AP spine, femoral neck, and, if needed, forearm. COMPARISON: None. In accordance with the International Society for Clinical Densitometry (ISCD) guidelines, data from previous exams may be reanalyzed using current recommendations and techniques. This is done to allow a more accurate basis for comparison with the current study. FINDINGS Data for the lumbar spine is as follows: N/A. Data for the hip is as follows: REGION BMD (g/cm/cm) T-SCORE Z-SCORE Neck 0.897 -1.0 0.1 TOTAL 0.904 -0.8 -0.1 NOTE: The femoral neck or total proximal femur, whichever is lowest, is used for classification. Data for the forearm is as follows: REGION BMD (g/cm/cm) T-SCORE Z-SCORE 1/3 0.671 -2.3 -1.0 NOTE: The 33% radius of the nondominant forearm is used for classification. IMPRESSION 1. WHO CLASSIFICATION BASED ON THE INTERNATIONAL REFERENCE STANDARD IS OSTEOPENIA. FRACTURE RISK IS INCREASED. 2. LUMBAR SPINE WAS EXCLUDED FROM EVALUATION DUE TO SPINAL FUSION HARDWARE. RECOMMENDATION: Patients with diagnosis of osteoporosis or osteopenia should have regular bone mineral density assessment. For those eligible for Medicare, routine testing is allowed once every 2 years. Testing frequency can be increased for patients who have rapidly progressing disease or for those who are receiving medical therapy to restore bone mass. COMMENT World Health Organization (WHO) definitions for osteoporosis and osteopenia: NORMAL BMD: T-score at 1.0 or higher, fracture risk is low. OSTEOPENIA BMD: T-score between 1.0 and -2.5, fracture risk is increased. OSTEOPOROSIS BMD: T-score at 2.5 or lower, fracture risk high. National Osteoporosis Foundation recommends: 1. Obtain adequate dietary calcium (at least 1200 mg per day) and vitamin D (400 -800 international units per day). 2. Participate, as appropriate, in regular weightbearing and muscle- strengthening exercise. 3. Avoid tobacco use and reduce alcohol and caffeine intake. 4. For more detailed information see the website at www.NOF.org. TD: 12/06/2017 15:24 [facility]
== END 2017-12-06 08:07 | disposition home or self-care (01) ==
LOC: DI 08:06
PROVIDERS: ATTEND Internal Medicine
DX: Z13.820 Encounter for screening for osteoporosis (principal); M85.89 Other specified disorders of bone density and structure, multiple sites; N95.8 Other specified menopausal and perimenopausal disorders; E55.9 Vitamin D deficiency, unspecified; Z98.1 Arthrodesis status
CPT/HCPCS: 77080; 77081

== ENCOUNTER 2017-12-23 08:03 | Emergency (ER) | payer MEDICARE, BC ==
[2017-12-23] MEDS ORDERED: SODIUM CHLORIDE 0.9% 1,000 ML IV ONE (09:08)
[2017-12-23] MEDS ORDERED: DEXAMETHASONE 10 MG/ML VIAL IVP STA (09:08)
[2017-12-23] MEDS ORDERED: cefTRIAXone 1 GM in SODIUM CHLORIDE 0.9% MINIBAG 100 ML IV STA (09:08)
--- NOTE | 2017-12-23 09:12 | ED Physician Documentation ---
PD HPI NVD - Stated complaint Stated Complaint: DIZZY/VOMITING - Chief complaint Chief Complaint: General - History obtained from History obtained from: Patient, Family - History of Present Illness Timing - onset: Enter time (0700), Today Timing - duration: Minutes Timing - details: Abrupt onset, Still present Associated symptoms: Other (dizziness) Contributing factors: No: Bad food, Recent antibiotics, Alcohol use Improved by: Laying still Similar symptoms before: No diagnosis Recently seen: Clinic - Additonal information Additional information: 67-year-old female with a prior history of gastric bypass presents to the emergency department with her this morning after developing an episode of dizziness associated with nausea and vomiting this morning at 0700. She relates that she has had a recent upper respiratory infection about a week ago that seemed to clear after about 3 days. She has been into see her primary care doctor Dr. Andres Palacio for routine visits 2 days ago. She is complained of some dizziness that is been present for 5-6 months that is intermittent. This morning she has dizziness and a headache as well. Review of Systems Constitutional: denies: Fever Eyes: denies: Decreased vision, Photophobia Ears: denies: Ear pain Nose: reports: Rhinorrhea / runny nose, Congestion Throat: reports: Sore throat Cardiac: denies: Chest pain / pressure, Palpitations Respiratory: reports: Cough. 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 : None HEENT: None Psych: Depression, Anxiety, Panic attacks, ADD/ADHD Musculoskeletal: Fibromyalgia, Chronic back pain Derm: None - Past Surgical History Past Surgical History: Yes General: Cholecystectomy, Appendectomy, Gastric surgery Ortho: Knee replacement, Carpal Tunnel surgery, Spine surgery /AIRCRAFT INSTRUMENT TESTER: Hysterectomy HEENT: Cataracts - Present Medications Home Medications: Ambulatory Orders Medication Instructions Recorded Confirmed clonazePAM [KlonoPIN] 1 mg PO QPM PRN 04/28/16 11/25/16 Dextroamphetamine/Amphetamine 20 mg PO BID 06/14/16 11/25/16 [Adderall Xr 20 mg Capsule] Levothyroxine Sodium 125 mcg PO DAILY 10/27/16 04/09/17 Ergocalciferol [Vitamin D2] 50,000 unit PO Q7D #30 capsule 08/29/16 11/25/16 Gabapentin 300 mg PO DAILY 01/11/17 01/11/17 Ropinirole HCl [Ropinirole ER] 0.25 mg PO DAILY 01/11/17 01/11/17 Dexamethasone [Decadron] 4 mg PO DAILY #5 tablet 06/02/17 Oxycodone HCl/Acetaminophen 1 each PO TID #30 tablet 06/02/17 [Percocet 7.5-325 mg Tablet] Diphenoxylate HCl/Atropine 1 each PO Q6H PRN #12 tablet 08/11/17 [Diphenoxylate-Atrop 2.5-0.025] HYDROcod/ACETAM 5/325 [[place] 5/325] 1 tab PO Q6H PRN #12 tablet 08/11/17 Ondansetron Odt [Zofran] 4 mg TL Q6H PRN #15 tablet 08/11/17 Azithromycin [Zithromax] 250 mg PO DAILY #6 tablet 12/23/17 Meclizine HCl 25 mg PO Q6HR PRN #20 tab.chew 12/23/17 Ondansetron Odt [Zofran] 4 mg TL Q6H PRN #10 tablet 12/23/17 - Allergies Allergies/Adverse Reactions: Allergies Allergy/AdvReac Type Severity Reaction Status Date / Time Penicillins Allergy Hives Verified 08/11/17 12:42 - Social History Does the pt smoke?: No Smoking Status: Never smoker Does the pt drink ETOH?: No Does the pt have substance abuse?: No - Immunizations Immunizations are current?: Yes - POLST Patient has POLST: No PD ED PE NORMAL - Vitals Vital signs reviewed: Yes (hypertensive) - General General: Alert and oriented X 3, No acute distress, Well developed/nourished - HEENT HEENT: Atraumatic, PERRL, EOMI, Other (The left TM is markedly inflamed with rounding of the landmarks. She has minimal nystagmus bilaterally ) - Neck Neck: Supple, no meningeal sign, No bony TTP - Cardiac Cardiac: RRR, No murmur - Respiratory Respiratory: No respiratory distress, Clear bilaterally - Abdomen Abdomen: Soft, Non tender - Back Back: No CVA TTP, No spinal TTP - Derm Derm: Normal color, Warm and dry, No rash - Extremities Extremities: No deformity, No edema - Neuro Neuro: No motor deficit, No sensory deficit Eye Opening: Spontaneous Motor: Obeys Commands Verbal: Oriented GCS Score: 15 - Psych Psych: Normal mood, Normal affect Results - Vitals Vitals: Vital Signs - 24 hr 12/23/17 12/23/17 12/23/17 08:09 10:11 10:38 Temperature 36.2 C L Heart Rate 79 86 77 Respiratory 18 18 16 Rate Blood Pressure 160/111 H 98/59 L 144/85 H O2 Saturation 98 99 100 Oxygen O2 Source Room air - Labs Labs: Laboratory Tests 12/23/17 12/23/17 12/23/17 09:18 09:18 09:18 WBC 7.3 RBC 3.88 L Hgb 12.8 Hct 37.5 MCV 96.5 MCH 33.0 H MCHC 34.2 RDW 13.5 Plt Count 231 MPV 7.5 L Neut # 5.7 Lymph # 1.1 L Long # 0.4 Eos # 0.0 Baso # 0.1 Absolute Nucleated RBC 0.00 Nucleated RBC % 0.0 Sodium 135 Potassium 4.1 Chloride 100 L Carbon Dioxide 27 Anion Gap 8.0 BUN 14 Creatinine 0.6 Estimated GFR (MDRD) 100 Glucose 102 H Calcium 9.2 Total Bilirubin 0.7 AST 24 ALT 12 Alkaline Phosphatase 96 Troponin I < 0.04 Total Protein 7.4 Albumin 4.1 Globulin 3.3 Albumin/Globulin Ratio 1.2 Lipase 17 L Urine Color Urine Clarity Urine pH Ur Specific [place] Urine Protein Urine Glucose (UA) Urine Ketones Urine Occult Blood Urine Nitrite Urine Bilirubin Urine Urobilinogen Ur Leukocyte Esterase Ur Microscopic Review Urine Culture Comments 12/23/17 09:20 WBC RBC Hgb Hct MCV MCH MCHC RDW Plt Count MPV Neut # Lymph # Long # Eos # Baso # Absolute Nucleated RBC Nucleated RBC % Sodium Potassium Chloride Carbon Dioxide Anion Gap BUN Creatinine Estimated GFR (MDRD) Glucose Calcium Total Bilirubin AST ALT Alkaline Phosphatase Troponin I Total Protein Albumin Globulin Albumin/Globulin Ratio Lipase Urine Color YELLOW Urine Clarity CLEAR Urine pH 6.0 Ur Specific [place] 1.020 Urine Protein NEGATIVE Urine Glucose (UA) NEGATIVE Urine Ketones NEGATIVE Urine Occult Blood NEGATIVE Urine Nitrite NEGATIVE Urine Bilirubin NEGATIVE Urine Urobilinogen 0.2 (NORMAL) Ur Leukocyte Esterase NEGATIVE Ur Microscopic Review NOT INDICATED Urine Culture Comments NOT INDICATED PD MEDICAL DECISION MAKING - ED course Complexity details: reviewed results, re-evaluated patient, considered differential, d/w patient, d/w family ED course: 67-year-old female With a history of ADHD and fibromyalgia has developed acute dizziness this morning and had some vomiting as well. On examination she has otitis and she is treated aggressively for this. She is administered dexamethasone and Rocephin. She is given a liter of saline 4 mg of Zofran as well. Departure - Departure Disposition: Home, Self Care Clinical Impression: Labyrinthitis Qualifiers: Laterality: unspecified laterality Qualified Code(s): H83.09 - Labyrinthitis, unspecified ear Otitis media Qualifiers: Otitis media type: suppurative Chronicity: acute Laterality: left Recurrence: not specified as recurrent Spontaneous tympanic membrane rupture: without spontaneous rupture Qualified Code(s): H66.002 - Acute suppurative otitis media without spontaneous rupture of ear drum, left ear Condition: Stable Instructions: ED Labyrinthitis, ED Otitis Media Acute Adult Follow-Up: Andres Palacio MD [Primary Care Provider] - Prescriptions: Meclizine HCl 25 mg PO Q6HR PRN #20 tab.chew PRN Reason: Dizziness Azithromycin [Zithromax] 250 mg PO DAILY #6 tablet Ondansetron Odt [Zofran] 4 mg TL Q6H PRN #10 tablet PRN Reason: Nausea / Vomiting Discharge Date/Time: 12/23/17 11:33
[2017-12-23 09:25] LABS: BASOPHILS # (AUTO) 0.1 10^3/uL (0.0-0.1); BASOPHILS % (AUTO) 0.9 %; EOSINOPHILS % (AUTO) 0.6 %; HGB - HEMOGLOBIN 12.8 g/dL (12.0-16.0); LYMPHOCYTES # (AUTO) 1.1 10^3/uL (1.5-3.5); MEAN CORPUSCULAR HGB CONC 34.2 g/dL (32.0-36.0); MEAN CORPUSCULAR VOLUME 96.5 fL (81.0-99.0); MEAN PLATELET VOLUME 7.5 fL (7.9-10.8); MONOCYTES # (AUTO) 0.4 10^3/uL (0.0-1.0); NEUTROPHILS # (AUTO) 5.7 10^3/uL (1.5-6.6); NEUTROPHILS % (AUTO) 77.5 %; PLT - PLATELET COUNT 231 10^3/uL (130-450); RED BLOOD COUNT 3.88 10^6/uL (4.20-5.40); RED CELL DISTRIBUTION WIDTH 13.5 % (12.0-15.0); WHITE BLOOD COUNT 7.3 x10^3/uL (4.8-10.8)
[2017-12-23 09:34] LABS: ALBUMIN 4.1 g/dL (3.2-5.5); ALBUMIN/GLOBULIN RATIO 1.2 (1.0-2.2); BILIRUBIN,TOTAL 0.7 mg/dL (0.2-1.0); CALCIUM 9.2 mg/dL (8.5-10.3); CREATININE 0.6 mg/dL (0.4-1.0); TOTAL PROTEIN 7.4 g/dL (6.7-8.2)
[2017-12-23 09:39] LABS: BILIRUBIN,URINE NEGATIVE (NEGATIVE); GLUCOSE, URINE (UA) NEGATIVE (NEGATIVE); KETONES,URINE (UA) NEGATIVE (NEGATIVE); LEUKOCYTE ESTERASE, URINE NEGATIVE (NEGATIVE); NITRITE,URINE NEGATIVE (NEGATIVE); OCCULT BLOOD,URINE NEGATIVE (NEGATIVE); PROTEIN,URINE NEGATIVE (NEGATIVE); UROBILINOGEN,URINE 0.2 (NORMAL) E.U./dL (NORMAL)
[2017-12-23 09:43] LABS: CLARITY,URINE CLEAR (CLEAR)
[2017-12-23] MEDS ORDERED: ONDANSETRON 4 MG/2 ML VIAL IVP STA (10:18)
[2017-12-23] MEDS ORDERED: MECLIZINE 12.5 MG TABLET PO STA (10:25)
[2017-12-23 10:38] VITALS: BP 144/85
== END 2017-12-23 11:33 | disposition home or self-care (01) ==
LOC: ED 08:03
DX: H83.09 Labyrinthitis, unspecified ear (principal); H66.002 Acute suppurative otitis media without spontaneous rupture of ear drum, left ear; Z98.84 Bariatric surgery status; E03.9 Hypothyroidism, unspecified; M79.7 Fibromyalgia
CPT/HCPCS: 80053; 81003; 83690; 84484; 85025; 96365; 96375; 99283; 99284; A9270; 81001; 87086

== ENCOUNTER 2018-07-15 22:28 | Emergency (ER) | payer MEDICARE, BC ==
--- NOTE | 2018-07-15 22:57 | ED Physician Documentation ---
PD HPI HEADACHE - Stated complaint Stated Complaint: HEADACHE - Chief complaint Chief Complaint: Neuro - History obtained from History obtained from: Patient - History of Present Illness Timing - onset: Enter time (16:00), Today Timing - onset during: Rest Timing - duration: Hours Timing - details: Gradual onset Pain level now: 8 Worst headache ever?: No: Worst headache ever? Location: Front, Right, Left Quality: Throbbing Associated symptoms: Nausea. No: Fever, Stiff neck, Vomiting, Weakness, Numbness, Vision changes Improved by: Rest, Dark room Worsened by: Light, Noise Contributing factors: No: Anticoagulated, Possible carbon monoxide, Hypertension, Recent illness, Trauma Similar symptoms before: Has not had sx before Recently seen: Not recently seen Review of Systems Constitutional: reports: Reviewed and negative Eyes: reports: Reviewed and negative Ears: reports: Reviewed and negative Nose: reports: Reviewed and negative Cardiac: reports: Reviewed and negative Respiratory: reports: Reviewed and negative GI: reports: Nausea. denies: Abdominal Pain, Vomiting Neurologic: reports: Headache. 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 : None HEENT: None Psych: Depression, Anxiety, Panic attacks, ADD/ADHD Musculoskeletal: Fibromyalgia, Chronic back pain Derm: None - Past Surgical History Past Surgical History: Yes General: Cholecystectomy, Appendectomy, Gastric surgery Ortho: Knee replacement, Carpal Tunnel surgery, Spine surgery /EXECUTIVE RECRUITER: Hysterectomy HEENT: Cataracts - Present Medications Home Medications: Ambulatory Orders Medication Instructions Recorded Confirmed Dextroamphetamine/Amphetamine 20 mg PO BID 06/14/16 11/25/16 [Adderall Xr 20 mg Capsule] Levothyroxine Sodium 125 mcg PO DAILY 06/14/16 11/25/16 Ergocalciferol [Vitamin D2] 50,000 unit PO Q7D #30 capsule 08/29/16 11/25/16 Gabapentin 300 mg PO DAILY 01/11/17 01/11/17 Oxycodone HCl/Acetaminophen 1 each PO TID #30 tablet 06/02/17 [Percocet 7.5-325 mg Tablet] - Allergies Allergies/Adverse Reactions: Allergies Allergy/AdvReac Type Severity Reaction Status Date / Time Penicillins Allergy Hives Verified 07/15/18 22:33 - Social History Does the pt smoke?: No Smoking Status: Never smoker Does the pt drink ETOH?: No Does the pt have substance abuse?: No - Immunizations Immunizations are current?: Yes - POLST Patient has POLST: No PD ED PE NORMAL - Vitals Vital signs reviewed: Yes - General General: Alert and oriented X 3, No acute distress, Well developed/nourished - HEENT HEENT: PERRL, EOMI - Neck Neck: Supple, no meningeal sign - Cardiac Cardiac: RRR, No murmur - Respiratory Respiratory: No respiratory distress, Clear bilaterally - Abdomen Abdomen: Soft, Non tender - Neuro Neuro: Alert and oriented X 3, corporate technical recruiter 2-12 intact, No motor deficit, No sensory deficit, Normal speech Eye Opening: Spontaneous Motor: Obeys Commands Verbal: Oriented GCS Score: 15 Results - Vitals Vitals: Oxygen O2 Source Room air - EKG (time done) No standard instances Rate: Rate (enter#) (83) Rhythm: NSR [place]: Normal Intervals: Normal OR QRS: Normal Ischemia: Normal ST segments - Rads (name of study) CT head Radiology: Prelim report reviewed, See rad report PD MEDICAL DECISION MAKING - ED course Complexity details: reviewed results, re-evaluated patient, considered differential, d/w patient Departure - Departure Disposition: 01 Home, Self Care Clinical Impression: Headache, Hypertension Condition: Good Instructions: ED Cephalgia Unspecified, ED Hypertension Poss Follow-Up: Andres Palacio MD [Primary Care Provider] - (Call in the morning to arrange for next available appointment) Discharge Date/Time: 07/16/18 01:31
[2018-07-15] MEDS ORDERED: HYDROmorphone 1 MG/ML CARPUJECT IM STA (23:22)
[2018-07-15] MEDS ORDERED: ONDANSETRON ODT 4 MG TABLET TL STA (23:22)
--- NOTE | 2018-07-16 00:04 | CT Report ---
Reason: headache Procedure Date: 07/15/2018 Accession Number: [id number] / [id number] Procedure: CT - Head W/O CPT Code: FULL RESULT: EXAM: CT HEAD EXAM DATE: 07/15/2018 11:39 PM. CLINICAL HISTORY: Headache. COMPARISON: 11/17/2016. TECHNIQUE: Multiaxial CT images were obtained from the foramen magnum to the vertex. Reformats: Sagittal and coronal. IV contrast: None. In accordance with CT protocol optimization, one or more of the following dose reduction techniques were utilized for this exam: automated exposure control, adjustment of mA and/or KV based on patient size, or use of iterative reconstructive technique. FINDINGS: Parenchyma: No intraparenchymal hemorrhage. No evidence of mass, midline shift, or CT findings of infarction. Nails-white differentiation is distinct. Extraaxial Spaces: Normal for age. No subdural or epidural collections identified. Ventricles: Normal in size and position. Sinuses and Orbits: Imaged paranasal sinuses, orbits, and mastoids show no significant abnormality. Bones: No evidence of fracture or calvarial defect. Other: None. IMPRESSION: No acute or focal intracranial abnormality. RADIA
[2018-07-16] MEDS ORDERED: HYDROmorphone 1 MG/ML CARPUJECT IM STA (00:16)
[2018-07-16] MEDS ORDERED: cloNIDine 0.1 MG TABLET PO STA (00:53)
[2018-07-16 01:31] VITALS: BP 150/100
== END 2018-07-16 01:31 | disposition home or self-care (01) ==
LOC: ED 22:28
DX: R51 Headache (principal); I10 Essential (primary) hypertension
CPT/HCPCS: 70450; 93005; 96372; 99283; 99284; A9270; J1170; Q0162

== ENCOUNTER 2018-11-13 18:21 | Emergency (ER) | payer MEDICARE, BC ==
[2018-11-13 19:05] LABS: BASOPHILS # (AUTO) 0.1 10^3/uL (0.0-0.1); BASOPHILS % (AUTO) 1.2 %; EOSINOPHILS # (AUTO) 0.1 10^3/uL (0.0-0.7); HGB - HEMOGLOBIN 12.3 g/dL (12.0-16.0); LYMPHOCYTES # (AUTO) 1.6 10^3/uL (1.5-3.5); LYMPHOCYTES % (AUTO) 20.6 %; MEAN CORPUSCULAR HEMOGLOBIN 30.5 pg (27.0-31.0); MEAN CORPUSCULAR HGB CONC 32.6 g/dL (32.0-36.0); MEAN CORPUSCULAR VOLUME 93.4 fL (81.0-99.0); MEAN PLATELET VOLUME 7.8 fL (7.9-10.8); MONOCYTES # (AUTO) 0.6 10^3/uL (0.0-1.0); MONOCYTES % (AUTO) 7.8 %; NEUTROPHILS # (AUTO) 5.5 10^3/uL (1.5-6.6); NEUTROPHILS % (AUTO) 69.4 %; PLT - PLATELET COUNT 233 10^3/uL (130-450); RED BLOOD COUNT 4.05 10^6/uL (4.20-5.40); RED CELL DISTRIBUTION WIDTH 15.6 % (12.0-15.0)
[2018-11-13 19:32] LABS: ALBUMIN 4.1 g/dL (3.2-5.5); ALBUMIN/GLOBULIN RATIO 1.5 (1.0-2.2); BILIRUBIN,TOTAL 0.6 mg/dL (0.2-1.0); CALCIUM 9.1 mg/dL (8.5-10.3); TOTAL PROTEIN 6.9 g/dL (6.7-8.2)
[2018-11-13] MEDS ORDERED: SODIUM CHLORIDE 0.9% 1,000 ML IV ONE (19:40)
--- NOTE | 2018-11-13 19:43 | ED Physician Documentation ---
History of Present Illness - Stated complaint Stated Complaint: LBP/VELASQUEZ/BODY ACHES - Chief complaint Chief Complaint: Neuro - History obtained from History obtained from: Patient - History of Present Illness Timing: Other (Increasing weakness for a couple of days associated with all of her body soreness and migratory muscle cramps today including the back and legs. She feels generally weak and had a systolic of 80 at home. She is a remote history of Cecile-en-Y gastric bypass, ADD and hypertension. Otherwise she is pretty healthy. She had an iron infusion last week, but she gets that about yearly. She denies chest pain, cough, trouble breathing. She has a mild headache. No chills or fever.) Review of Systems Constitutional: reports: Myalgias, Fatigue. 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 : None HEENT: None Psych: Depression, Anxiety, Panic attacks, ADD/ADHD Musculoskeletal: Fibromyalgia, Chronic back pain Derm: None - Past Surgical History Past Surgical History: Yes General: Cholecystectomy, Appendectomy, Gastric surgery Ortho: Knee replacement, Carpal Tunnel surgery, Spine surgery /VETERANS EMPLOYMENT REPRESENTATIVE: Hysterectomy HEENT: Cataracts - Present Medications Home Medications: Ambulatory Orders Medication Instructions Recorded Confirmed Dextroamphetamine/Amphetamine 20 mg PO BID 06/14/16 11/13/18 [Adderall Xr 20 mg Capsule] Levothyroxine Sodium 125 mcg PO DAILY 06/14/16 11/13/18 Oxycodone HCl/Acetaminophen 1 each PO TID #30 tablet 06/02/17 11/13/18 [Percocet 7.5-325 mg Tablet] Losartan Potassium 1 tab PO DAILY 11/13/18 11/13/18 - Allergies Allergies/Adverse Reactions: Allergies Allergy/AdvReac Type Severity Reaction Status Date / Time Penicillins Allergy Intermediate Hives Verified 11/13/18 18:32 - Social History Does the pt smoke?: No Smoking Status: Former smoker Does the pt drink ETOH?: No Does the pt have substance abuse?: No - Immunizations Immunizations are current?: Yes - POLST Patient has POLST: No PD ED PE NORMAL - Vitals Vital signs reviewed: Yes - General General: Alert and oriented X 3, No acute distress - HEENT HEENT: PERRL, EOMI, Ears normal, Pharynx benign - Neck Neck: Supple, no meningeal sign, No bony TTP - Cardiac Cardiac: RRR, No murmur - Respiratory Respiratory: No respiratory distress, Clear bilaterally - Abdomen Abdomen: Normal bowel sounds, Soft, Non tender - Back Back: No CVA TTP, No spinal TTP - Derm Derm: Normal color, Warm and dry - Extremities Extremities: No edema, No calf tenderness / cord - Neuro Neuro: Alert and oriented X 3, Normal speech - Psych Psych: Normal mood, Normal affect Results - Vitals Vitals: Vital Signs - 24 hr 11/13/18 11/13/18 18:30 19:33 Temperature 36.7 C Heart Rate 81 75 Respiratory 14 18 Rate Blood Pressure 110/77 110/71 O2 Saturation 100 95 Oxygen O2 Source Room air - Labs Labs: Laboratory Tests 11/13/18 11/13/18 11/13/18 18:37 18:37 19:51 WBC 8.0 RBC 4.05 L Hgb 12.3 Hct 37.9 MCV 93.4 MCH 30.5 MCHC 32.6 RDW 15.6 H Plt Count 233 MPV 7.8 L Neut # (Auto) 5.5 Lymph # (Auto) 1.6 [place] # (Auto) 0.6 Eos # (Auto) 0.1 Baso # (Auto) 0.1 Absolute Nucleated RBC 0.00 Nucleated RBC % 0.0 Sodium 138 Potassium 4.2 Chloride 102 Carbon Dioxide 26 Anion Gap 10.0 BUN 27 H Creatinine 1.0 Estimated GFR (MDRD) 55 L Glucose 53 L* Calcium 9.1 Total Bilirubin 0.6 AST 33 ALT 24 Alkaline Phosphatase 90 Total Protein 6.9 Albumin 4.1 Globulin 2.8 Albumin/Globulin Ratio 1.5 Lipase 25 Urine Color Urine Clarity Urine pH Ur Specific [place] Urine Protein Urine Glucose (UA) Urine Ketones Urine Occult Blood Urine Nitrite Urine Bilirubin Urine Urobilinogen Ur Leukocyte Esterase Ur Microscopic Review Urine Culture Comments Influenza A (Rapid) Negative Influenza B (Rapid) Negative 11/13/18 20:51 WBC RBC Hgb Hct MCV MCH MCHC RDW Plt Count MPV Neut # (Auto) Lymph # (Auto) [place] # (Auto) Eos # (Auto) Baso # (Auto) Absolute Nucleated RBC Nucleated RBC % Sodium Potassium Chloride Carbon Dioxide Anion Gap BUN Creatinine Estimated GFR (MDRD) Glucose Calcium Total Bilirubin AST ALT Alkaline Phosphatase Total Protein Albumin Globulin Albumin/Globulin Ratio Lipase Urine Color YELLOW Urine Clarity CLEAR Urine pH 5.5 Ur Specific [place] 1.015 Urine Protein NEGATIVE Urine Glucose (UA) 100 H Urine Ketones NEGATIVE Urine Occult Blood NEGATIVE Urine Nitrite NEGATIVE Urine Bilirubin NEGATIVE Urine Urobilinogen 0.2 (NORMAL) Ur Leukocyte Esterase NEGATIVE Ur Microscopic Review NOT INDICATED Urine Culture Comments NOT INDICATED Influenza A (Rapid) Influenza B (Rapid) PD MEDICAL DECISION MAKING - ED course ED course: This is a 68-year-old woman who presents with fatigue, muscle cramps. Workup demonstrates evidence of dehydration evidenced by high BUN. She also has mildly low blood sugar but all she had to eat today was a beet salad and worked heavily outdoors. After the administration of 2 L of IV fluids she felt much better and the muscle cramps were gone. Departure - Departure Disposition: 01 Home, Self Care Clinical Impression: Dehydration, Muscle cramps Fatigue Qualifiers: Fatigue type: unspecified Qualified Code(s): R53.83 - Other fatigue Instructions: ED Dehydration Comments: Drink plenty of fluids. Return for any new or worsening symptoms. Follow-up with your doctor in about 3-4 days for recheck.
[2018-11-13] MEDS ORDERED: DEXTROSE 5%-LACTATED RINGERS 1,000 ML IV SCH (20:00)
[2018-11-13 21:00] LABS: BILIRUBIN,URINE NEGATIVE (NEGATIVE); GLUCOSE, URINE (UA) 100 mg/dL (NEGATIVE); KETONES,URINE (UA) NEGATIVE (NEGATIVE); LEUKOCYTE ESTERASE, URINE NEGATIVE (NEGATIVE); NITRITE,URINE NEGATIVE (NEGATIVE); OCCULT BLOOD,URINE NEGATIVE (NEGATIVE); PH,URINE 5.5 PH (5.0-7.5); PROTEIN,URINE NEGATIVE (NEGATIVE); UROBILINOGEN,URINE 0.2 (NORMAL) E.U./dL (NORMAL)
[2018-11-13 21:01] LABS: CLARITY,URINE CLEAR (CLEAR)
[2018-11-13 21:50] VITALS: BP 109/78
== END 2018-11-13 21:30 | disposition home or self-care (01) ==
LOC: ED 18:21
DX: E86.0 Dehydration (principal); R25.2 Cramp and spasm; R53.83 Other fatigue; Z87.891 Personal history of nicotine dependence; E03.9 Hypothyroidism, unspecified; Z96.659 Presence of unspecified artificial knee joint
CPT/HCPCS: 36415; 80053; 81001; 81003; 83690; 85025; 87086; 87275; 87276; 96365; 99283; 99284

== ENCOUNTER 2019-02-03 15:59 | Emergency (ER) | payer MEDICARE, BC ==
--- NOTE | 2019-02-03 16:43 | ED Physician Documentation ---
PD HPI HEENT - Stated complaint Stated Complaint: DIZZY,VOMITING - Chief complaint Chief Complaint: Neuro - History obtained from History obtained from: Patient - History of Present Illness Timing - onset: How many days ago (few) Timing - duration: Days (few) Timing - details: Gradual onset, Still present, Waxing and waning Location: Right ear, Sinuses Worsens: Position (having dizziness and ear pain with bending over, tilting head) Associated symptoms: Congestion, Other (myalgias). No: Fever, Unable to swallow, Swollen nodes, Facial swelling Similar symptoms before: Has not had sx before Recently seen: Not recently seen Review of Systems Constitutional: reports: Myalgias, Fatigue. denies: Fever Eyes: denies: Loss of vision, Decreased vision Ears: reports: Ear pain Nose: reports: Congestion, Sinus pressure / pain. denies: Rhinorrhea / runny nose Throat: denies: Sore throat Respiratory: denies: Cough GI: reports: Nausea, Vomiting (with the worse dizziness). 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 : None HEENT: None Psych: Depression, Anxiety, Panic attacks, ADD/ADHD Musculoskeletal: Fibromyalgia, Chronic back pain Derm: None - Past Surgical History Past Surgical History: Yes General: Cholecystectomy, Appendectomy, Gastric surgery Ortho: Knee replacement, Carpal Tunnel surgery, Spine surgery /LEAD CYTOGENETIC TECHNOLOGIST: Hysterectomy HEENT: Cataracts - Present Medications Home Medications: Ambulatory Orders Medication Instructions Recorded Confirmed Dextroamphetamine/Amphetamine 20 mg PO BID 06/14/16 11/13/18 [Adderall Xr 20 mg Capsule] Levothyroxine Sodium 125 mcg PO DAILY 06/14/16 11/13/18 Oxycodone HCl/Acetaminophen 1 each PO TID #30 tablet 06/02/17 11/13/18 [Percocet 7.5-325 mg Tablet] Losartan Potassium 1 tab PO DAILY 11/13/18 11/13/18 Cephalexin [Keflex] 500 mg PO TID #21 capsule 02/03/19 Meclizine [Antivert] 25 mg PO Q6H PRN #30 tablet 02/03/19 dexAMETHasone [Decadron] 4 mg PO DAILY #5 tablet 02/03/19 - Allergies Allergies/Adverse Reactions: Allergies Allergy/AdvReac Type Severity Reaction Status Date / Time Penicillins Allergy Intermediate Hives Verified 02/03/19 16:16 - Social History Does the pt smoke?: No Smoking Status: Former smoker Does the pt drink ETOH?: No Does the pt have substance abuse?: No - Immunizations Immunizations are current?: Yes - POLST Patient has POLST: No PD ED PE NORMAL - Vitals Vital signs reviewed: Yes - General General: Alert and oriented X 3, Well developed/nourished - HEENT HEENT: PERRL, EOMI (some nystagmus to the right), Pharynx benign. No: Ears normal (right TM with redness and swelling. Left one is okay. ) - Neck Neck: Supple, no meningeal sign, Other (anterior adenopathy) - Cardiac Cardiac: RRR, No murmur - Respiratory Respiratory: Clear bilaterally - Derm Derm: Normal color, Warm and dry - Neuro Neuro: Alert and oriented X 3, No motor deficit, Normal speech Results - Vitals Vitals: Oxygen O2 Source Room air - Labs Labs: Laboratory Tests 02/03/19 02/03/19 02/03/19 16:56 17:10 17:10 WBC 4.2 L RBC 4.00 L Hgb 13.0 Hct 40.9 MCV 102.3 H MCH 32.5 H MCHC 31.8 L RDW 15.1 H Plt Count 194 MPV 9.5 Neut # (Auto) 2.2 Lymph # (Auto) 1.5 [place] # (Auto) 0.3 Eos # (Auto) 0.1 Baso # (Auto) 0.1 Absolute Nucleated RBC 0.00 Nucleated RBC % 0.0 Sodium 137 Potassium 4.4 Chloride 100 L Carbon Dioxide 26 Anion Gap 11.0 BUN 14 Creatinine 0.7 Estimated GFR (MDRD) 84 L Glucose 97 Calcium 9.7 Magnesium 1.9 Total Bilirubin 0.8 AST 38 ALT 30 Alkaline Phosphatase 90 Total Protein 7.7 Albumin 4.3 Globulin 3.4 Albumin/Globulin Ratio 1.3 Lipase 21 L Urine Color YELLOW Urine Clarity CLEAR Urine pH 6.5 Ur Specific [place] 1.010 Urine Protein NEGATIVE Urine Glucose (UA) NEGATIVE Urine Ketones NEGATIVE Urine Occult Blood NEGATIVE Urine Nitrite NEGATIVE Urine Bilirubin NEGATIVE Urine Urobilinogen 0.2 (NORMAL) Ur Leukocyte Esterase NEGATIVE Ur Microscopic Review NOT INDICATED Urine Culture Comments NOT INDICATED PD MEDICAL DECISION MAKING - ED course Complexity details: reviewed results, considered differential (her vertigo seems local infectious to ear/inner ear. ), d/w patient Departure - Departure Disposition: 01 Home, Self Care Clinical Impression: Vertigo, Muscle cramps Right otitis media Qualifiers: Otitis media type: suppurative Chronicity: acute Recurrence: non-recurrent Spontaneous tympanic membrane rupture: with spontaneous rupture Qualified Code(s): H66.011 - Acute suppurative otitis media with spontaneous rupture of ear drum, right ear Condition: Stable Record reviewed to determine appropriate education?: Yes Instructions: ED Dizziness UKO, ED Otitis Media Acute Adult Follow-Up: Andres Palacio MD [Primary Care Provider] - Prescriptions: Cephalexin [Keflex] 500 mg PO TID #21 capsule dexAMETHasone [Decadron] 4 mg PO DAILY #5 tablet Meclizine [Antivert] 25 mg PO Q6H PRN #30 tablet PRN Reason: Vertigo Comments: Your basic blood tests and urine test appear normal. I think your dizziness is related to an infection in the inner ear. You certainly have a an infection in the middle ear with the perforation of the eardrum. Stay well-hydrated. Use cephalexin antibiotic as directed for a week. Meclizine every 6 hours if needed for dizziness. Use anti-inflammatory as dir ected. Tylenol if needed for pains. Recheck if not improving over the next few days. Follow-up with your primary care in about a week or so to see that the eardrum is healing okay. Return if worsening. Discharge Date/Time: 02/03/19 18:19
[2019-02-03] MEDS ORDERED: cephALEXin 250 MG CAPSULE PO STA (17:00)
[2019-02-03] MEDS ORDERED: ONDANSETRON ODT 4 MG TABLET TL STA (17:00)
[2019-02-03] MEDS ORDERED: CHERRY SYRUP 10 ML UDC PO ONE (17:00)
[2019-02-03] MEDS ORDERED: DEXAMETHASONE 10 MG/ML VIAL PO STA (17:00)
[2019-02-03] MEDS ORDERED: MECLIZINE 12.5 MG TABLET PO STA (17:00)
[2019-02-03 17:17] LABS: BASOPHILS # (AUTO) 0.1 10^3/uL (0.0-0.1); BASOPHILS % (AUTO) 1.4 %; EOSINOPHILS # (AUTO) 0.1 10^3/uL (0.0-0.7); EOSINOPHILS % (AUTO) 2.6 %; LYMPHOCYTES # (AUTO) 1.5 10^3/uL (1.5-3.5); LYMPHOCYTES % (AUTO) 35.1 %; MEAN CORPUSCULAR HEMOGLOBIN 32.5 pg (27.0-31.0); MEAN CORPUSCULAR HGB CONC 31.8 g/dL (32.0-36.0); MEAN CORPUSCULAR VOLUME 102.3 fL (81.0-99.0); MEAN PLATELET VOLUME 9.5 fL (7.9-10.8); MONOCYTES # (AUTO) 0.3 10^3/uL (0.0-1.0); NEUTROPHILS # (AUTO) 2.2 10^3/uL (1.5-6.6); NEUTROPHILS % (AUTO) 52.7 %; PLT - PLATELET COUNT 194 10^3/uL (130-450); RED CELL DISTRIBUTION WIDTH 15.1 % (12.0-15.0); WHITE BLOOD COUNT 4.2 x10^3/uL (4.8-10.8)
[2019-02-03 17:30] LABS: ALBUMIN 4.3 g/dL (3.2-5.5); ALBUMIN/GLOBULIN RATIO 1.3 (1.0-2.2); BILIRUBIN,TOTAL 0.8 mg/dL (0.2-1.0); CALCIUM 9.7 mg/dL (8.5-10.3); CREATININE 0.7 mg/dL (0.4-1.0); MAGNESIUM 1.9 mg/dL (1.7-2.8); TOTAL PROTEIN 7.7 g/dL (6.7-8.2)
[2019-02-03 18:01] VITALS: BP 148/97
[2019-02-03 18:06] LABS: BILIRUBIN,URINE NEGATIVE (NEGATIVE); GLUCOSE, URINE (UA) NEGATIVE (NEGATIVE); KETONES,URINE (UA) NEGATIVE (NEGATIVE); LEUKOCYTE ESTERASE, URINE NEGATIVE (NEGATIVE); NITRITE,URINE NEGATIVE (NEGATIVE); OCCULT BLOOD,URINE NEGATIVE (NEGATIVE); PH,URINE 6.5 PH (5.0-7.5); PROTEIN,URINE NEGATIVE (NEGATIVE); UROBILINOGEN,URINE 0.2 (NORMAL) E.U./dL (NORMAL)
[2019-02-03 18:07] LABS: CLARITY,URINE CLEAR (CLEAR)
== END 2019-02-03 18:19 | disposition home or self-care (01) ==
LOC: ED 15:59
DX: H66.011 Acute suppurative otitis media with spontaneous rupture of ear drum, right ear (principal); R42 Dizziness and giddiness; R25.2 Cramp and spasm; E03.9 Hypothyroidism, unspecified; F90.9 Attention-deficit hyperactivity disorder, unspecified type; F41.0 Panic disorder [episodic paroxysmal anxiety]; M79.7 Fibromyalgia; G89.29 Other chronic pain; M54.9 Dorsalgia, unspecified; Z79.891 Long term (current) use of opiate analgesic; Z87.891 Personal history of nicotine dependence; Z96.659 Presence of unspecified artificial knee joint; Z90.49 Acquired absence of other specified parts of digestive tract
CPT/HCPCS: 36415; 80053; 81003; 83690; 83735; 85025; 99283; A9270; Q0162; 81001; 87086

== ENCOUNTER 2019-02-19 14:39 | Emergency (ER) | payer MEDICARE, BC ==
[2019-02-19] MEDS ORDERED: HYDROmorphone 1 MG/ML CARPUJECT IM STA ×2 (15:00→15:39)
--- NOTE | 2019-02-19 15:02 | ED Physician Documentation ---
PD HPI BACK INJURY - Stated complaint Stated Complaint: BACK PX - History obtained from History obtained from: Patient, Family () - History of Present Illness Location: Other (68-year-old woman with chronic back pain, had remote surgeries in 2004. She was pulling up crab pots today and was feeling okay, but when she got out of the car the twisting motion developed sudden severe pain in the low thoracic spine that radiates to either side without new neurologic symptoms. Note that she weighs has some numbness in the left leg but she denies saddle anesthesia or incontinence. 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 : None HEENT: None Psych: Depression, Anxiety, Panic attacks, ADD/ADHD Musculoskeletal: Fibromyalgia, Chronic back pain Derm: None - Past Surgical History Past Surgical History: Yes General: Cholecystectomy, Appendectomy, Gastric surgery Ortho: Knee replacement, Shoulder arthroplasty, Carpal Tunnel surgery, Spine surgery /INTERIOR DESIGN DIRECTOR: Hysterectomy HEENT: Cataracts - Present Medications Home Medications: Ambulatory Orders Medication Instructions Recorded Confirmed Dextroamphetamine/Amphetamine 20 mg PO BID 06/14/16 11/13/18 [Adderall Xr 20 mg Capsule] RX: Levothyroxine Sodium 125 mcg PO DAILY 06/14/16 11/13/18 Oxycodone HCl/Acetaminophen 1 each PO TID #30 tablet 06/02/17 11/13/18 [Percocet 7.5-325 mg Tablet] RX: Losartan Potassium 1 tab PO DAILY 11/13/18 11/13/18 RX: Meclizine [Antivert] 25 mg PO Q6H PRN #30 tablet 02/03/19 Cyclobenzaprine [Flexeril] 10 mg PO TID PRN #20 tablet 02/19/19 Lidocaine Patch 5% [Lidoderm Patch] 1 patch TOP DAILY PRN #10 patch 02/19/19 RX: Gabapentin 300 mg PO 02/19/19 - Allergies Allergies/Adverse Reactions: Allergies Allergy/AdvReac Type Severity Reaction Status Date / Time Penicillins Allergy Intermediate Hives Verified 02/19/19 14:51 - Social History Does the pt smoke?: No Smoking Status: Never smoker Does the pt drink ETOH?: Yes Does the pt have substance abuse?: No - Immunizations Immunizations are current?: Yes - POLST Patient has POLST: No PD ED PE NORMAL - Vitals Vital signs reviewed: Yes - General General: Alert and oriented X 3, Other (Appears uncomfortable and winces with motion) - Respiratory Respiratory: No respiratory distress, Clear bilaterally - Abdomen Abdomen: Normal bowel sounds, Soft, Non tender - Back Back: Other (Mostly what seems like muscular tenderness to either side of the low thoracic spine. There is an extensive lumbar surgical scar that is well- healed and remote. She has some numbness in a left L4-L5 distribution but with seemingly symmetric albeit somewhat decreased patellar and Achilles reflexes.) - Neuro Neuro: Alert and oriented X 3, Normal speech Results - Vitals Vitals: Vital Signs - 24 hr 02/19/19 02/19/19 14:43 16:28 Temperature 36 C L 36.8 C Heart Rate 82 79 Respiratory 18 15 Rate Blood Pressure 136/86 H 136/92 H O2 Saturation 100 94 Oxygen O2 Source Room air - Rads (name of study) T SPine XR Radiology: EMP read contemporaneously (NAD) PD MEDICAL DECISION MAKING - ED course ED course: This patient has seemingly uncomplicated musculoskeletal back pain. The patient has no "red flags." Specifically denies IV drug use, fevers, incontinence, saddle anesthesia. Spinal epidural abscess was considered, given that the patient has no fever, is not diabetic, has no spinal tenderness, does not use IV drugs, and has no bilateral neurologic symptoms, the diagnosis of spinal epidural abscess is considered exceedingly unlikely. She was administered divided doses of pain medications here with improvement. Departure - Departure Disposition: 01 Home, Self Care Clinical Impression: Acute exacerbation of chronic low back pain Condition: Good Record reviewed to determine appropriate education?: Yes Health Concerns: increased back pain Plan of Treatment: Xrays unremarkable. Pain control, FOllowup with Dr Palacio. Care Goals: pain control Assessment: as above Instructions: ED Low Back Pain Injury Prescriptions: Cyclobenzaprine [Flexeril] 10 mg PO TID PRN #20 tablet PRN Reason: Spasms Lidocaine Patch 5% [Lidoderm Patch] 1 patch TOP DAILY PRN #10 patch PRN Reason: pain
[2019-02-19] MEDS ORDERED: KETOROLAC 60 MG/2 ML VIAL IM STA (15:39)
--- NOTE | 2019-02-19 15:59 | XRAY Report ---
Reason: back inj Procedure Date: 02/19/2019 Accession Number: [id number] / [id number] Procedure: XR - Thoracic Spine 2 View CPT Code: FULL RESULT: EXAM: THORACIC SPINE RADIOGRAPHY EXAM DATE: 02/19/2019 03:21 PM. CLINICAL HISTORY: Back pain COMPARISON: CHEST 1 VIEW 05/01/2017 2:44 PM. TECHNIQUE: 2 views. FINDINGS: Alignment: No evidence of dislocation. There is right convex scoliosis. No spondylolisthesis. Bones: No fractures or bone lesions. Disks: Disk spacing is maintained. There is mild marginal osteophyte formation. Soft Tissues: Normal. The visualized lungs and cardiomediastinal silhouette are normal. IMPRESSION: There is no evidence of thoracic spine fracture or dislocation. RADIA
[2019-02-19] MEDS ORDERED: CYCLOBENZAPRINE 10 MG TABLET PO STA (16:20)
[2019-02-19 16:29] VITALS: BP 136/92
== END 2019-02-19 16:38 | disposition home or self-care (01) ==
LOC: ED 14:39
DX: G89.29 Other chronic pain (principal); M54.5 Low back pain
CPT/HCPCS: 72070; 96372; 99283; A9270; J1170

== ENCOUNTER 2019-07-09 01:50 | Emergency (ER) | payer MEDICARE, BC ==
[2019-07-09 01:55] VITALS: BP 143/90
[2019-07-09] MEDS ORDERED: KETOROLAC 15 MG/ML VIAL IM STA (02:14)
--- NOTE | 2019-07-09 02:17 | ED Physician Documentation ---
History of Present Illness - Stated complaint Stated Complaint: LT HAND NUMB - Chief complaint Chief Complaint: Ext Problem - History obtained from History obtained from: Patient - History of Present Illness Timing: How many weeks ago (2) Severity Comments: moderate Left neck pain radiating to L hand with L hand pain, paresthesias Quality: sharp Radiates to: left hand and arm Improved by: nothing Worsened by: nothing Associated symptoms: occasionally dropping things, tingling, intermittent numbness of various fingertips that changes from time to time Review of Systems Ten Systems: 10 systems reviewed and negative Constitutional: reports: Reviewed and negative Nose: reports: Reviewed and negative Cardiac: reports: Reviewed and negative Respiratory: reports: Reviewed and negative GI: reports: Reviewed and negative Musculoskeletal: reports: Neck pain, Extremity pain Neurologic: reports: Numbness. 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 : None HEENT: None Psych: Depression, Anxiety, Panic attacks, ADD/ADHD Musculoskeletal: Fibromyalgia, Chronic back pain Derm: None - Past Surgical History Past Surgical History: Yes General: Cholecystectomy, Appendectomy, Gastric surgery Ortho: Knee replacement, Shoulder arthroplasty, Carpal Tunnel surgery, Spine surgery /GRADE CHECKER: Hysterectomy HEENT: Cataracts - Present Medications Home Medications: Ambulatory Orders Medication Instructions Recorded Confirmed Dextroamphetamine/Amphetamine 20 mg PO BID 06/14/16 11/13/18 [Adderall Xr 20 mg Capsule] Levothyroxine Sodium 125 mcg PO DAILY 06/14/16 11/13/18 Oxycodone HCl/Acetaminophen 1 each PO TID #30 tablet 06/02/17 11/13/18 [Percocet 7.5-325 mg Tablet] Losartan Potassium 1 tab PO DAILY 11/13/18 11/13/18 Meclizine [Antivert] 25 mg PO Q6H PRN #30 tablet 02/03/19 Cyclobenzaprine [Flexeril] 10 mg PO TID PRN #20 tablet 02/19/19 Gabapentin 300 mg PO 02/19/19 Lidocaine Patch 5% [Lidoderm Patch] 1 patch TOP DAILY PRN #10 patch 02/19/19 Gabapentin 300 mg PO TID PRN #20 capsule 07/09/19 - Allergies Allergies/Adverse Reactions: Allergies Allergy/AdvReac Type Severity Reaction Status Date / Time Penicillins Allergy Intermediate Hives Verified 07/09/19 01:55 - Social History Does the pt smoke?: No Smoking Status: Never smoker Does the pt drink ETOH?: Yes Does the pt have substance abuse?: No - Immunizations Immunizations are current?: Yes - POLST Patient has POLST: No PD ED PE NORMAL - Vitals Vital signs reviewed: Yes - General General: Alert and oriented X 3, No acute distress, Well developed/nourished - HEENT HEENT: Atraumatic - Neck Neck: Supple, no meningeal sign - Cardiac Cardiac: RRR - Respiratory Respiratory: No respiratory distress - Abdomen Abdomen: Non distended - Female Female : Deferred - Rectal Rectal: Deferred - Derm Derm: Normal color, Warm and dry, No rash - Extremities Extremities: No deformity, Normal ROM s pain - Neuro Neuro: Alert and oriented X 3, No motor deficit, No sensory deficit, Normal s peech Eye Opening: Spontaneous Motor: Obeys Commands Verbal: Oriented GCS Score: 15 - Psych Psych: Normal mood, Normal affect PD ED PE EXPANDED - Neck Neck: Soft tissue TTP (Left lateral trapezius), Other (full ROM ). No: Bony TTP, Limited ROM - Extremities Extremities: No: Deformity, Tenderness, Limited ROM - Neuro Neuro: Normal motor, Normal Sensation (normal strength and objectively normal sensation in both hands and arms.) Results - Vitals Vitals: Vital Signs - 24 hr 07/09/19 01:52 Temperature 36.6 C Heart Rate 80 Respiratory 17 Rate Blood Pressure 143/90 H O2 Saturation 100 Oxygen O2 Source Room air PD MEDICAL DECISION MAKING - ED course Complexity details: considered differential, d/w patient ED course: 68 y/o F with chronic pain, with Neck pain and shoulder pain, arm pain reports intermittent L hand numbness subjectively for 2 weeks. Objectively pt has no sensory deficit on exam, no weakness, has full ROM of the arm and hand. Possibly this is a cervical radiculopathy. Will give trial of gabapentin and pt is to f/u with PCP for recheck of her symptoms and outpt imaging. Departure - Departure Disposition: 01 Home, Self Care Clinical Impression: Cervical radiculopathy Condition: Stable Record reviewed to determine appropriate education?: Yes Instructions: ED Cervical Radiculopathy Follow-Up: Andres Palacio MD [Primary Care Provider] - As Needed Prescriptions: Gabapentin 300 mg PO TID PRN #20 capsule PRN Reason: Pain Comments: Your arm pain and hand paresthesias are likely from a pinched nerve in your neck. Your strength and examination here were normal. You can take the prescribed gabapentin as needed for your symptoms. Follow up with your doctor to recheck your symptoms. Discharge Date/Time: 07/09/19 02:24
== END 2019-07-09 02:24 | disposition home or self-care (01) ==
LOC: ED 01:50
DX: M54.12 Radiculopathy, cervical region (principal)
CPT/HCPCS: 96372; 99283; 99284

== ENCOUNTER 2019-07-10 07:25 | Emergency (ER) | payer MEDICARE, BC ==
[2019-07-10 07:35] VITALS: BP 130/97
== END 2019-07-10 08:20 | disposition left against medical advice (07) ==
LOC: ED 07:25
DX: Z53.21 Procedure and treatment not carried out due to patient leaving prior to being seen by health care provider (principal)

== ENCOUNTER 2019-09-16 12:46 | Outpatient (CLI) | payer MEDICARE, BC ==
[2019-09-16 13:01] LABS: BASOPHILS # (AUTO) 0.1 10^3/uL (0.0-0.1); EOSINOPHILS % (AUTO) 0.4 %; HGB - HEMOGLOBIN 12.9 g/dL (12.0-16.0); LYMPHOCYTES # (AUTO) 2.7 10^3/uL (1.5-3.5); LYMPHOCYTES % (AUTO) 40.1 %; MEAN CORPUSCULAR HEMOGLOBIN 33.5 pg (27.0-31.0); MEAN CORPUSCULAR HGB CONC 33.4 g/dL (32.0-36.0); MEAN CORPUSCULAR VOLUME 100.3 fL (81.0-99.0); MEAN PLATELET VOLUME 9.1 fL (7.9-10.8); MONOCYTES # (AUTO) 0.6 10^3/uL (0.0-1.0); MONOCYTES % (AUTO) 8.8 %; NEUTROPHILS # (AUTO) 3.3 10^3/uL (1.5-6.6); NEUTROPHILS % (AUTO) 49.4 %; PLT - PLATELET COUNT 239 10^3/uL (130-450); RED BLOOD COUNT 3.85 10^6/uL (4.20-5.40); RED CELL DISTRIBUTION WIDTH 13.7 % (12.0-15.0); WHITE BLOOD COUNT 6.8 x10^3/uL (4.8-10.8)
[2019-09-16 13:26] LABS: % IRON SATURATION 32 % (20-50); IRON 126 ug/dL (28-170); TOTAL IRON BINDING CAPACITY 396 ug/dL (250-450); TRANSFERRIN 283 mg/dL (192-382)
== END 2019-09-16 12:47 | disposition home or self-care (01) ==
LOC: LAB 12:46
PROVIDERS: ATTEND Internal Medicine
DX: E61.1 Iron deficiency (principal)
CPT/HCPCS: 36415; 83540; 84466; 85025

== ENCOUNTER 2020-03-15 16:51 | Outpatient (CLI) | payer MEDICARE, BC ==
--- NOTE | 2020-03-15 17:59 | XRAY Report ---
PROCEDURE: Foot 3 View RT INDICATIONS: PAIN IN RIGHT FOOT TECHNIQUE: 3 views of the foot were acquired. COMPARISON: None FINDINGS: Bones: No fractures or dislocations. No suspicious bony lesions. Mild hallux valgus deformity. Calc aneal bone spurs. Soft tissues: No tibiotalar joint effusion. Achilles tendon appears normal. IMPRESSION: Calcaneal bone spurs. Reviewed by: Heike Grewal MD, PhD on 03/15/2020 5:58 PM PDT Approved by: Heike Grewal MD, PhD on 03/15/2020 5:58 PM PDT Station ID: [id number]
== END 2020-03-15 16:52 | disposition home or self-care (01) ==
LOC: DI.S 16:51
PROVIDERS: ATTEND Physician Assistant
DX: M77.31 Calcaneal spur, right foot (principal)

== ENCOUNTER 2020-04-27 11:55 | Outpatient (CLI) | payer MEDICARE, BC ==
[2020-04-27 15:33] LABS: BASOPHILS # (AUTO) 0.1 10^3/uL (0.0-0.1); BASOPHILS % (AUTO) 1.6 %; EOSINOPHILS # (AUTO) 0.1 10^3/uL (0.0-0.7); EOSINOPHILS % (AUTO) 2.2 %; LYMPHOCYTES # (AUTO) 1.6 10^3/uL (1.5-3.5); LYMPHOCYTES % (AUTO) 32.1 %; MEAN CORPUSCULAR HEMOGLOBIN 33.1 pg (27.0-31.0); MEAN CORPUSCULAR HGB CONC 32.3 g/dL (32.0-36.0); MEAN CORPUSCULAR VOLUME 102.5 fL (81.0-99.0); MEAN PLATELET VOLUME 10.3 fL (7.9-10.8); MONOCYTES # (AUTO) 0.5 10^3/uL (0.0-1.0); MONOCYTES % (AUTO) 9.8 %; NEUTROPHILS # (AUTO) 2.7 10^3/uL (1.5-6.6); NEUTROPHILS % (AUTO) 54.1 %; PLT - PLATELET COUNT 211 10^3/uL (130-450); RED BLOOD COUNT 3.62 10^6/uL (4.20-5.40); RED CELL DISTRIBUTION WIDTH 13.2 % (12.0-15.0)
[2020-04-27 16:57] LABS: ALBUMIN 4.3 g/dL (3.2-5.5); ALBUMIN/GLOBULIN RATIO 1.6 (1.0-2.2); BILIRUBIN,TOTAL 0.5 mg/dL (0.2-1.0); CALCIUM 8.7 mg/dL (8.5-10.3); CREATININE 0.7 mg/dL (0.4-1.0)
[2020-04-27 17:04] LABS: THYROID STIMULATING HORMONE 6.3 uIU/mL (0.34-5.60)
[2020-04-27 17:16] LABS: FOLATE 10.99 ng/mL (5.90 - >24.8)
== END 2020-04-27 11:56 | disposition home or self-care (01) ==
LOC: LAB.S 11:55
PROVIDERS: ATTEND Internal Medicine
DX: E03.9 Hypothyroidism, unspecified (principal); Z98.84 Bariatric surgery status; E61.1 Iron deficiency; E55.9 Vitamin D deficiency, unspecified
CPT/HCPCS: 36415; 80053; 82306; 82607; 82746; 83540; 84443; 84466; 85025

== ENCOUNTER 2020-08-04 10:45 | Outpatient (CLI) | payer MEDICARE, BC ==
[2020-08-04 14:40] LABS: BASOPHILS # (AUTO) 0.1 10^3/uL (0.0-0.1); BASOPHILS % (AUTO) 1.5 %; EOSINOPHILS # (AUTO) 0.1 10^3/uL (0.0-0.7); EOSINOPHILS % (AUTO) 1.6 %; HGB - HEMOGLOBIN 12.4 g/dL (12.0-16.0); LYMPHOCYTES % (AUTO) 36.9 %; MEAN CORPUSCULAR HEMOGLOBIN 32.7 pg (27.0-31.0); MEAN CORPUSCULAR HGB CONC 31.8 g/dL (32.0-36.0); MEAN CORPUSCULAR VOLUME 102.9 fL (81.0-99.0); MEAN PLATELET VOLUME 10.5 fL (7.9-10.8); MONOCYTES # (AUTO) 0.6 10^3/uL (0.0-1.0); MONOCYTES % (AUTO) 10.1 %; NEUTROPHILS # (AUTO) 2.7 10^3/uL (1.5-6.6); NEUTROPHILS % (AUTO) 49.7 %; PLT - PLATELET COUNT 241 10^3/uL (130-450); RED BLOOD COUNT 3.79 10^6/uL (4.20-5.40); RED CELL DISTRIBUTION WIDTH 13.2 % (12.0-15.0); WHITE BLOOD COUNT 5.5 x10^3/uL (4.8-10.8)
[2020-08-04 16:13] LABS: % IRON SATURATION 19 % (20-50); IRON 85 ug/dL (28-170); TOTAL IRON BINDING CAPACITY 437 ug/dL (250-450); TRANSFERRIN 312 mg/dL (192-382)
[2020-08-04 16:16] LABS: THYROID STIMULATING HORMONE 1.47 uIU/mL (0.34-5.60)
== END 2020-08-04 10:46 | disposition home or self-care (01) ==
LOC: LAB.S 10:45
PROVIDERS: ATTEND Internal Medicine
DX: E61.1 Iron deficiency (principal); E03.9 Hypothyroidism, unspecified
CPT/HCPCS: 36415; 82607; 83540; 84443; 84466; 85025

== ENCOUNTER 2021-01-26 14:53 | Outpatient (CLI) | payer MEDICARE, BC | END 2021-01-26 14:54 | disposition short-term general hospital (02) | LOC: EMS 14:53 | DX: R07.9 Chest pain, unspecified (principal) | CPT/HCPCS: A0425; A0427 ==

== ENCOUNTER 2021-03-02 12:50 | Outpatient (CLI) | payer MEDICARE, BC ==
[2021-03-02 19:55] LABS: BASOPHILS # (AUTO) 0.1 10^3/uL (0.0-0.1); BASOPHILS % (AUTO) 1.6 %; EOSINOPHILS # (AUTO) 0.1 10^3/uL (0.0-0.7); EOSINOPHILS % (AUTO) 2.7 %; HCT - HEMATOCRIT 34.9 % (37.0-47.0); HGB - HEMOGLOBIN 11.3 g/dL (12.0-16.0); LYMPHOCYTES # (AUTO) 1.7 10^3/uL (1.5-3.5); LYMPHOCYTES % (AUTO) 39.3 %; MEAN CORPUSCULAR HEMOGLOBIN 32.1 pg (27.0-31.0); MEAN CORPUSCULAR HGB CONC 32.4 g/dL (32.0-36.0); MEAN CORPUSCULAR VOLUME 99.1 fL (81.0-99.0); MEAN PLATELET VOLUME 10.8 fL (7.9-10.8); MONOCYTES # (AUTO) 0.5 10^3/uL (0.0-1.0); MONOCYTES % (AUTO) 11.6 %; NEUTROPHILS % (AUTO) 44.6 %; PLT - PLATELET COUNT 230 10^3/uL (130-450); RED BLOOD COUNT 3.52 10^6/uL (4.20-5.40); RED CELL DISTRIBUTION WIDTH 13.5 % (12.0-15.0); WHITE BLOOD COUNT 4.4 x10^3/uL (4.8-10.8)
[2021-03-02 20:01] LABS: PARTIAL THROMBOPLASTIN TIME 28.1 secs (24.9-33.3)
[2021-03-02 20:09] LABS: PT - PROTHROMBIN TIME 11.4 secs (9.9-12.6)
[2021-03-02 20:30] LABS: ESTIMATED AVERAGE GLUCOSE 117 mg/dL (70-100); HEMOGLOBIN A1c% 5.7 % (4.27-6.07)
[2021-03-02 20:50] LABS: THYROID STIMULATING HORMONE 6.48 uIU/mL (0.34-5.60)
[2021-03-02 20:51] LABS: ALBUMIN 4.2 g/dL (3.2-5.5); ALBUMIN/GLOBULIN RATIO 1.6 (1.0-2.2); BILIRUBIN,TOTAL 0.9 mg/dL (0.2-1.0); CALCIUM 9.2 mg/dL (8.5-10.3); CREATININE 0.7 mg/dL (0.4-1.0); MAGNESIUM 2.1 mg/dL (1.7-2.8); TOTAL PROTEIN 6.8 g/dL (6.7-8.2)
[2021-03-02 20:56] LABS: FERRITIN 28.7 ng/mL (11.0-306.8)
[2021-03-02 20:58] LABS: FOLATE 14.38 ng/mL (5.90 - >24.8)
[2021-03-02 21:52] LABS: FREE T4 (FREE THYROXINE) 1.03 ng/dL (0.58-1.64)
== END 2021-03-02 12:51 | disposition home or self-care (01) ==
LOC: LAB.S 12:50
PROVIDERS: ATTEND Registered Nurse
DX: Z01.812 Encounter for preprocedural laboratory examination (principal); E53.8 Deficiency of other specified B group vitamins; Z86.39 Personal history of other endocrine, nutritional and metabolic disease; E03.9 Hypothyroidism, unspecified; Z13.1 Encounter for screening for diabetes mellitus; E55.9 Vitamin D deficiency, unspecified; R25.2 Cramp and spasm; Z98.84 Bariatric surgery status; I10 Essential (primary) hypertension
CPT/HCPCS: 36415; 80048; 80053; 82306; 82607; 82728; 82746; 83036; 83540; 83735; 83970; 84425; 84439; 84443; 84466; 85025; 85610; 85730

== ENCOUNTER 2021-08-31 16:31 | Outpatient (CLI) | payer MEDICARE, OTHER ==
[2021-08-31 20:07] LABS: BASOPHILS # (AUTO) 0.1 10^3/uL (0.0-0.1); BASOPHILS % (AUTO) 1.8 %; EOSINOPHILS # (AUTO) 0.1 10^3/uL (0.0-0.7); EOSINOPHILS % (AUTO) 1.8 %; HCT - HEMATOCRIT 38.6 % (37.0-47.0); HGB - HEMOGLOBIN 12.5 g/dL (12.0-16.0); LYMPHOCYTES % (AUTO) 38.9 %; MEAN CORPUSCULAR HEMOGLOBIN 30.7 pg (27.0-31.0); MEAN CORPUSCULAR HGB CONC 32.4 g/dL (32.0-36.0); MEAN CORPUSCULAR VOLUME 94.8 fL (81.0-99.0); MEAN PLATELET VOLUME 11.7 fL (7.9-10.8); MONOCYTES # (AUTO) 0.4 10^3/uL (0.0-1.0); MONOCYTES % (AUTO) 7.1 %; NEUTROPHILS # (AUTO) 2.5 10^3/uL (1.5-6.6); NEUTROPHILS % (AUTO) 50.2 %; PLT - PLATELET COUNT 230 10^3/uL (130-450); RED BLOOD COUNT 4.07 10^6/uL (4.20-5.40); RED CELL DISTRIBUTION WIDTH 14.5 % (12.0-15.0)
[2021-08-31 20:15] LABS: BILIRUBIN,URINE NEGATIVE (NEGATIVE); GLUCOSE, URINE (UA) NEGATIVE (NEGATIVE); KETONES,URINE (UA) NEGATIVE (NEGATIVE); LEUKOCYTE ESTERASE, URINE NEGATIVE (NEGATIVE); NITRITE,URINE NEGATIVE (NEGATIVE); OCCULT BLOOD,URINE NEGATIVE (NEGATIVE); PH,URINE 5.5 PH (5.0-7.5); PROTEIN,URINE NEGATIVE (NEGATIVE); UROBILINOGEN,URINE 0.2 (NORMAL) E.U./dL (NORMAL)
[2021-08-31 20:16] LABS: CLARITY,URINE CLEAR (CLEAR)
[2021-08-31 20:24] LABS: ALBUMIN 4.3 g/dL (3.2-5.5); ALBUMIN/GLOBULIN RATIO 1.3 (1.0-2.2); BILIRUBIN,TOTAL 0.5 mg/dL (0.2-1.0); CALCIUM 9.3 mg/dL (8.5-10.3); CREATININE 0.7 mg/dL (0.4-1.0); POTASSIUM 4.1 mmol/L (3.5-5.0); TOTAL PROTEIN 7.5 g/dL (6.7-8.2)
== END 2021-08-31 16:32 | disposition home or self-care (01) ==
LOC: LAB.S 16:31
PROVIDERS: ATTEND Internal Medicine
DX: R10.9 Unspecified abdominal pain (principal)
CPT/HCPCS: 36415; 80053; 81001; 81003; 85025

== ENCOUNTER 2022-06-28 11:28 | Outpatient (CLI) | payer MEDICARE, OTHER ==
[2022-06-28 14:26] LABS: BASOPHILS # (AUTO) 0.1 10^3/uL (0.0-0.1); BASOPHILS % (AUTO) 1.7 %; EOSINOPHILS # (AUTO) 0.1 10^3/uL (0.0-0.7); EOSINOPHILS % (AUTO) 1.7 %; HCT - HEMATOCRIT 35.5 % (37.0-47.0); HGB - HEMOGLOBIN 11.7 g/dL (12.0-16.0); LYMPHOCYTES # (AUTO) 1.4 10^3/uL (1.5-3.5); LYMPHOCYTES % (AUTO) 40.6 %; MEAN CORPUSCULAR VOLUME 94.2 fL (81.0-99.0); MEAN PLATELET VOLUME 11.1 fL (7.9-10.8); MONOCYTES # (AUTO) 0.5 10^3/uL (0.0-1.0); MONOCYTES % (AUTO) 15.1 %; NEUTROPHILS # (AUTO) 1.4 10^3/uL (1.5-6.6); NEUTROPHILS % (AUTO) 40.6 %; PLT - PLATELET COUNT 186 10^3/uL (130-450); RED BLOOD COUNT 3.77 10^6/uL (4.20-5.40); RED CELL DISTRIBUTION WIDTH 13.8 % (12.0-15.0); WHITE BLOOD COUNT 3.5 x10^3/uL (4.8-10.8)
[2022-06-28 14:57] LABS: ALBUMIN 4.3 g/dL (3.2-5.5); ALBUMIN/GLOBULIN RATIO 1.6 (1.0-2.2); BILIRUBIN,TOTAL 0.5 mg/dL (0.2-1.0); CALCIUM 9.5 mg/dL (8.5-10.3); CREATININE 0.7 mg/dL (0.4-1.0); POTASSIUM 3.8 mmol/L (3.5-5.0)
== END 2022-06-28 11:29 | disposition home or self-care (01) ==
LOC: LAB.S 11:28
PROVIDERS: ATTEND Internal Medicine
DX: I10 Essential (primary) hypertension (principal); E03.9 Hypothyroidism, unspecified; E61.1 Iron deficiency
CPT/HCPCS: 36415; 80053; 83540; 84443; 84466; 85025

== ENCOUNTER 2022-08-27 07:00 | Outpatient (CLI) | payer MEDICARE, OTHER ==
[2022-08-27 14:46] LABS: BASOPHILS # (AUTO) 0.1 10^3/uL (0.0-0.1); BASOPHILS % (AUTO) 1.5 %; EOSINOPHILS # (AUTO) 0.1 10^3/uL (0.0-0.7); EOSINOPHILS % (AUTO) 1.1 %; HCT - HEMATOCRIT 39.6 % (37.0-47.0); HGB - HEMOGLOBIN 12.8 g/dL (12.0-16.0); LYMPHOCYTES # (AUTO) 1.4 10^3/uL (1.5-3.5); LYMPHOCYTES % (AUTO) 31.3 %; MEAN CORPUSCULAR HEMOGLOBIN 30.8 pg (27.0-31.0); MEAN CORPUSCULAR HGB CONC 32.3 g/dL (32.0-36.0); MEAN CORPUSCULAR VOLUME 95.2 fL (81.0-99.0); MEAN PLATELET VOLUME 10.9 fL (7.9-10.8); MONOCYTES # (AUTO) 0.4 10^3/uL (0.0-1.0); MONOCYTES % (AUTO) 8.3 %; NEUTROPHILS # (AUTO) 2.6 10^3/uL (1.5-6.6); NEUTROPHILS % (AUTO) 57.6 %; PLT - PLATELET COUNT 208 10^3/uL (130-450); RED BLOOD COUNT 4.16 10^6/uL (4.20-5.40); RED CELL DISTRIBUTION WIDTH 14.2 % (12.0-15.0); WHITE BLOOD COUNT 4.6 x10^3/uL (4.8-10.8)
[2022-08-27 15:21] LABS: THYROID STIMULATING HORMONE 0.82 uIU/mL (0.34-5.60)
[2022-08-27 15:25] LABS: FERRITIN 6.3 ng/mL (11.0-306.8)
[2022-08-27 16:05] LABS: ALBUMIN/GLOBULIN RATIO 1.3 (1.0-2.2); BILIRUBIN,TOTAL 0.7 mg/dL (0.2-1.0); CALCIUM 9.4 mg/dL (8.5-10.3); CREATININE 0.7 mg/dL (0.4-1.0); POTASSIUM 4.1 mmol/L (3.5-5.0); TOTAL PROTEIN 7.1 g/dL (6.7-8.2)
== END 2022-08-27 23:59 | disposition home or self-care (01) ==
LOC: LAB.S 07:00
PROVIDERS: ATTEND Physician Assistant Medical
DX: R94.6 Abnormal results of thyroid function studies (principal); R39.15 Urgency of urination; R82.90 Unspecified abnormal findings in urine; D50.9 Iron deficiency anemia, unspecified
CPT/HCPCS: 36415; 80053; 82728; 83540; 84443; 84466; 85025; 87086; 87181

== ENCOUNTER 2022-12-14 13:42 | Outpatient (CLI) | payer MEDICARE, OTHER ==
[2022-12-14 19:41] LABS: BASOPHILS # (AUTO) 0.1 10^3/uL (0.0-0.1); BASOPHILS % (AUTO) 1.3 %; EOSINOPHILS # (AUTO) 0.1 10^3/uL (0.0-0.7); EOSINOPHILS % (AUTO) 1.5 %; HCT - HEMATOCRIT 37.5 % (37.0-47.0); HGB - HEMOGLOBIN 12.3 g/dL (12.0-16.0); LYMPHOCYTES # (AUTO) 1.9 10^3/uL (1.5-3.5); LYMPHOCYTES % (AUTO) 40.1 %; MEAN CORPUSCULAR HEMOGLOBIN 32.4 pg (27.0-31.0); MEAN CORPUSCULAR HGB CONC 32.8 g/dL (32.0-36.0); MEAN CORPUSCULAR VOLUME 98.7 fL (81.0-99.0); MEAN PLATELET VOLUME 10.3 fL (7.9-10.8); MONOCYTES # (AUTO) 0.4 10^3/uL (0.0-1.0); MONOCYTES % (AUTO) 9.4 %; NEUTROPHILS # (AUTO) 2.2 10^3/uL (1.5-6.6); NEUTROPHILS % (AUTO) 47.7 %; PLT - PLATELET COUNT 204 10^3/uL (130-450); RED CELL DISTRIBUTION WIDTH 14.1 % (12.0-15.0); WHITE BLOOD COUNT 4.7 x10^3/uL (4.8-10.8)
[2022-12-14 19:57] LABS: ALBUMIN/GLOBULIN RATIO 1.4 (1.0-2.2); BILIRUBIN,TOTAL 0.8 mg/dL (0.2-1.0); CALCIUM 9.1 mg/dL (8.5-10.3); CREATININE 0.7 mg/dL (0.4-1.0); TOTAL PROTEIN 6.9 g/dL (6.7-8.2)
[2022-12-14 20:19] LABS: FOLATE 13.13 ng/mL (5.90 - >24.8)
== END 2022-12-14 13:43 | disposition home or self-care (01) ==
LOC: LAB.S 13:42
PROVIDERS: ATTEND Internal Medicine
DX: E55.9 Vitamin D deficiency, unspecified (principal); Z98.84 Bariatric surgery status; Z79.899 Other long term (current) drug therapy
CPT/HCPCS: 36415; 80053; 82306; 82607; 82746; 83540; 84466; 85025

== ENCOUNTER 2022-12-14 21:47 | Outpatient (CLI) | payer MEDICARE, OTHER | END 2022-12-14 23:59 | disposition critical access hospital (66) | LOC: EMS 21:47 | DX: R07.89 Other chest pain (principal); R45.1 Restlessness and agitation | CPT/HCPCS: A0425; A0427 ==

== ENCOUNTER 2022-12-14 22:27 | Emergency (ER) | payer MEDICARE, OTHER ==
[2022-12-14 22:56] LABS: BASOPHILS # (AUTO) 0.1 10^3/uL (0.0-0.1); BASOPHILS % (AUTO) 1.2 %; EOSINOPHILS # (AUTO) 0.1 10^3/uL (0.0-0.7); EOSINOPHILS % (AUTO) 0.7 %; HCT - HEMATOCRIT 34.8 % (37.0-47.0); HGB - HEMOGLOBIN 11.6 g/dL (12.0-16.0); LYMPHOCYTES # (AUTO) 1.4 10^3/uL (1.5-3.5); LYMPHOCYTES % (AUTO) 20.4 %; MEAN CORPUSCULAR HEMOGLOBIN 32.9 pg (27.0-31.0); MEAN CORPUSCULAR HGB CONC 33.3 g/dL (32.0-36.0); MEAN CORPUSCULAR VOLUME 98.6 fL (81.0-99.0); MEAN PLATELET VOLUME 9.8 fL (7.9-10.8); MONOCYTES # (AUTO) 0.5 10^3/uL (0.0-1.0); MONOCYTES % (AUTO) 7.9 %; NEUTROPHILS # (AUTO) 4.7 10^3/uL (1.5-6.6); NEUTROPHILS % (AUTO) 69.5 %; PLT - PLATELET COUNT 177 10^3/uL (130-450); RED BLOOD COUNT 3.53 10^6/uL (4.20-5.40); RED CELL DISTRIBUTION WIDTH 13.8 % (12.0-15.0); WHITE BLOOD COUNT 6.8 x10^3/uL (4.8-10.8)
[2022-12-14 23:13] LABS: ALBUMIN 3.8 g/dL (3.2-5.5); ALBUMIN/GLOBULIN RATIO 1.5 (1.0-2.2); BILIRUBIN,TOTAL 1.2 mg/dL (0.2-1.0); CREATININE 0.7 mg/dL (0.4-1.0); POTASSIUM 4.2 mmol/L (3.5-5.0); TOTAL PROTEIN 6.3 g/dL (6.7-8.2)
--- NOTE | 2022-12-14 23:26 | XRAY Report ---
PROCEDURE: Chest 1 View X-Ray INDICATIONS: Chest pain TECHNIQUE: One view of the chest was acquired. COMPARISON: Chest x-ray 04/08/2022. FINDINGS: Surgical changes and devices: None. Lungs and pleura: No pleural effusions or pneumothorax. Lungs are clear. Mediastinum: Mediastinal contours appear normal. Heart size is normal. Bones and chest wall: No suspicious bony lesions. Overlying soft tissues appear unremarkable. IMPRESSION: 1. No acute cardiopulmonary disease. Reviewed by: Mulugeta Stuart MD on 12/14/2022 11:37 PM PDT Approved by: Mulugeta Stuart MD on 12/14/2022 11:37 PM PDT Station ID: [id number]
[2022-12-14 23:55] LABS: MUDS CUTOFF CONCENTRATIONS CUTOFF CONC BELOW:
[2022-12-15 00:17] LABS: AMPHETAMINE SCREEN,URINE POSITIVE (NEGATIVE); BARBITURATE SCREEN,UR NEGATIVE (NEGATIVE); BENZODIAZEPINES SCREEN, URINE NEGATIVE (NEGATIVE); COCAINE SCREEN URINE NEGATIVE (NEGATIVE); METHADONE SCREEN, URINE NEGATIVE (NEGATIVE); METHAMPHETAMINES SCREEN, URINE NEGATIVE (NEGATIVE); OPIATE SCREEN, URINE NEGATIVE (NEGATIVE); OXYCODONE SCREEN, URINE POSITIVE (NEGATIVE); PROPOXYPHENE SCREEN, URINE NEGATIVE (NEGATIVE); THC CANNABINOID SCREEN, URINE POSITIVE (NEGATIVE); TRICYCLIC ANTIDEPRESSANT,URINE NEGATIVE (NEGATIVE)
[2022-12-15 00:29] LABS: ACETAMINOPHEN 11 ug/mL (10-30); ETOH - ETHANOL < 5.0 mg/dL; SALICYLATE < 6.0 mg/dL
--- NOTE | 2022-12-15 00:55 | ED Physician Documentation ---
PD HPI CHEST PAIN - Stated complaint Stated Complaint: CP - Chief complaint Chief Complaint: Cardiac - History obtained from History obtained from: Patient - Additional information Additional information: HPI from patient. Patient c/o midline low chest/epigastric pain, gradual onset approximately 5 PM today while at home undertaking light activity. Pain is associated with mild dyspnea but no pleuritic component. Pain does not radiate. Denies nausea, vomiting. Past surgical history includes cholecystectomy, appendectomy, hysterectomy. Denies h/o similar symptoms. The pain has nearly resolved by the time of this evaluation. No inciting, exacerbating, or ameliorating factors. Review of Systems Constitutional: denies: Fever, Chills, Sweats Cardiac: reports: Chest pain / pressure. denies: Palpitations, Pedal edema, Calf pain Respiratory: reports: Dyspnea. denies: Cough, Wheezing GI: reports: Abdominal Pain. 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 : None HEENT: None Psych: Depression, Anxiety, Panic attacks, ADD/ADHD Musculoskeletal: Fibromyalgia, Chronic back pain Derm: None - Past Surgical History Past Surgical History: Yes General: Cholecystectomy, Appendectomy, Gastric surgery Ortho: Knee replacement, Shoulder arthroplasty, Carpal Tunnel surgery, Spine surgery /DEPUTY PROSECUTING ATTORNEY: Hysterectomy HEENT: Cataracts - Present Medications Home Medications: Ambulatory Orders Medication Instructions Recorded Confirmed Dextroamphetamine/Amphetamine 20 mg PO BID 06/14/16 11/13/18 [Adderall Xr 20 mg Capsule] Levothyroxine Sodium 125 mcg PO DAILY 06/14/16 11/13/18 Oxycodone HCl/Acetaminophen 1 each PO TID #30 tablet 06/02/17 11/13/18 [Percocet 7.5-325 mg Tablet] Losartan Potassium 1 tab PO DAILY 11/13/18 11/13/18 Meclizine [Antivert] 25 mg PO Q6H PRN #30 tablet 02/03/19 Cyclobenzaprine [Flexeril] 10 mg PO TID PRN #20 tablet 02/19/19 Gabapentin 300 mg PO 02/19/19 Lidocaine Patch 5% [Lidoderm Patch] 1 patch TOP DAILY PRN #10 patch 02/19/19 Gabapentin 300 mg PO TID PRN #20 capsule 07/09/19 Albuterol Sulf [Ventolin Hfa 1 - 2 puffs INH Q4HR PRN #1 gm 04/08/22 Inhaler] predniSONE [Deltasone] 40 mg PO DAILY 5 Days #10 tablet 04/08/22 - Allergies Allergies/Adverse Reactions: Allergies Allergy/AdvReac Type Severity Reaction Status Date / Time Penicillins Allergy Intermediate Hives Verified 12/14/22 22:40 - Social History Does the pt smoke?: No Smoking Status: Never smoker Does the pt drink ETOH?: Yes Does the pt have substance abuse?: No - Immunizations Immunizations are current?: Yes - POLST Patient has POLST: No PD ED PE NORMAL - Vitals Vital signs reviewed: Yes - General General: Alert and oriented X 3, No acute distress, Well developed/nourished - Neck Neck: Supple, no meningeal sign - Cardiac Cardiac: RRR, No murmur - Respiratory Respiratory: No respiratory distress, Clear bilaterally - Abdomen Abdomen: Soft, Non distended, Other (mild epigastric TTP without rebound or guarding) - Derm Derm: Normal color, Warm and dry - Extremities Extremities: No edema Results - Vitals Vitals: Oxygen O2 Source Room air - EKG (time done) No standard instances EKG releavant findings:: EKG personally interpreted by author of this note. Relevant findings are: Rate: Rate (enter#) (84) Rhythm: NSR [place]: Normal Intervals: Normal [place], Prolonged QT QRS: Normal Ischemia: Normal ST segments Other comments: Other comments (PACs) - Labs Labs: Laboratory Tests 12/14/22 12/14/22 12/14/22 22:47 22:47 22:47 WBC 6.8 RBC 3.53 L Hgb 11.6 L Hct 34.8 L MCV 98.6 MCH 32.9 H MCHC 33.3 RDW 13.8 Plt Count 177 MPV 9.8 Neut # (Auto) 4.7 Lymph # (Auto) 1.4 L [place] # (Auto) 0.5 Eos # (Auto) 0.1 Baso # (Auto) 0.1 Absolute Nucleated RBC 0.00 Nucleated RBC % 0.0 Sodium 141 Potassium 4.2 Chloride 104 Carbon Dioxide 27 Anion Gap 10.0 BUN 22 H Creatinine 0.7 Estimated GFR (MDRD) 83 L Glucose 75 Calcium 9.0 Total Bilirubin 1.2 H AST 196 H ALT 82 H Alkaline Phosphatase 116 Ammonia Troponin I High Sens 7.7 Total Protein 6.3 L Albumin 3.8 Globulin 2.5 Albumin/Globulin Ratio 1.5 Lipase 24 TSH Salicylates Urine Opiates Screen Ur Oxycodone Screen Urine Methadone Screen Ur Propoxyphene Screen Acetaminophen Ur Barbiturates Screen Ur Tricyclics Screen Ur Phencyclidine Scrn Ur Amphetamine Screen U Methamphetamines Scrn U Benzodiazepines Scrn Urine Cocaine Screen U Cannabinoids Screen Ethyl Alcohol 12/14/22 12/14/22 12/14/22 22:47 22:47 22:52 WBC RBC Hgb Hct MCV MCH MCHC RDW Plt Count MPV Neut # (Auto) Lymph # (Auto) [place] # (Auto) Eos # (Auto) Baso # (Auto) Absolute Nucleated RBC Nucleated RBC % Sodium Potassium Chloride Carbon Dioxide Anion Gap BUN Creatinine Estimated GFR (MDRD) Glucose Calcium Total Bilirubin AST ALT Alkaline Phosphatase Ammonia 23.1 Troponin I High Sens Total Protein Albumin Globulin Albumin/Globulin Ratio Lipase TSH 0.29 L Salicylates < 6.0 Urine Opiates Screen Ur Oxycodone Screen Urine Methadone Screen Ur Propoxyphene Screen Acetaminophen 11 Ur Barbiturates Screen Ur Tricyclics Screen Ur Phencyclidine Scrn Ur Amphetamine Screen U Methamphetamines Scrn U Benzodiazepines Scrn Urine Cocaine Screen U Cannabinoids Screen Ethyl Alcohol < 5.0 12/14/22 23:48 WBC RBC Hgb Hct MCV MCH MCHC RDW Plt Count MPV Neut # (Auto) Lymph # (Auto) [place] # (Auto) Eos # (Auto) Baso # (Auto) Absolute Nucleated RBC Nucleated RBC % Sodium Potassium Chloride Carbon Dioxide Anion Gap BUN Creatinine Estimated GFR (MDRD) Glucose Calcium Total Bilirubin AST ALT Alkaline Phosphatase Ammonia Troponin I High Sens Total Protein Albumin Globulin Albumin/Globulin Ratio Lipase TSH Salicylates Urine Opiates Screen NEGATIVE Ur Oxycodone Screen POSITIVE H Urine Methadone Screen NEGATIVE Ur Propoxyphene Screen NEGATIVE Acetaminophen Ur Barbiturates Screen NEGATIVE Ur Tricyclics Screen NEGATIVE Ur Phencyclidine Scrn NEGATIVE Ur Amphetamine Screen POSITIVE H U Methamphetamines Scrn NEGATIVE U Benzodiazepines Scrn NEGATIVE Urine Cocaine Screen NEGATIVE U Cannabinoids Screen POSITIVE H Ethyl Alcohol - Rads (name of study) chest xray Relevant Findings:: Prelim report reviewed, EMP independent interpretation of test (images reviewed by me and my interpretation is no acute findings), See rad report PD Medical Decision Making - ED course Complexity details: reviewed results, re-evaluated patient, considered differential, d/w patient ED course: No acute findings on EKG, CXR. Mildly elevated bilirubin, AST, and ALT; of note, there are results of outpatient testing from earlier today including normal L FTs (patient says these were routine blood tests). She denies recent alcohol intake, denies excessive acetaminophen use (veronica's acetaminophen level is 11). She says she did take her percocet as per rx instructions earlier today as well as three tablets of OTC acetaminophen (the three tablets were not taken at once, but two tablets this morning and one more this evening). She says she has not taken the percocet more than label instructions and has not taken acetaminophen recently before today. Her prescriptions are with patient in ED and the percocet is for 5/325mg, #84 tablets filled 11/14/22 with four tablets remaining in bottle. The rx is written as 1 tablet TID PRN, and thus the four remaining tablets indicate she has not taken this medication in excess of the rx directions. Her hs-cTn is normal (7.7). Results d/w patient. Etiology of symptoms is not apparent at this time. I advised her to follow up with PMD, next available appointment, for reevaluation of her symptoms as well as her abnormal lab results (particularly the abnormal LFTs), and return precautions are discussed as well. Departure - Departure Disposition: 01 Home, Self Care Clinical Impression: Chest pain Condition: Good Instructions: ED Chest Pain Atypical Unkn Cause Follow-Up: Andres Palacio MD [Primary Care Provider] - Comments: There were no diagnostic findings on veronica's tests including the EKG, chest x- ray, and the blood test. As we discussed, mild elevations in a few of your liver function tests are noted. These are very mild elevations, but what is unusual is that these tests were normal on the outpatient blood test you had earlier today. It is not clear why these tests are now abnormal or whether this finding is related to your discomfort. The cause of your symptoms is not apparent at this time. Contact your primary care provider on Saturday when the office opens to arrange for next available appointment for follow-up. It is very important that you get reevaluated even if your symptoms do not recur. Discharge Date/Time: 12/15/22 01:32
[2022-12-15 01:21] VITALS: BP 102/67
== END 2022-12-15 01:32 | disposition home or self-care (01) ==
LOC: ED 22:27
DX: R74.01 Elevation of levels of liver transaminase levels (principal); R17 Unspecified jaundice; E55.9 Vitamin D deficiency, unspecified; Z98.84 Bariatric surgery status; Z79.899 Other long term (current) drug therapy
CPT/HCPCS: 36415; 71045; 80053; 80306; 80307; 82140; 82306; 82607; 82746; 83540; 83690; 84443; 84466; 84484; 85025; 93005; 99283; 99284; G0480; 80320; 80329

== ENCOUNTER 2023-05-16 08:00 | Outpatient (CLI) | payer MEDICARE, OTHER ==
--- NOTE | 2023-05-16 16:15 | XRAY Report ---
PROCEDURE: Forearm RT INDICATIONS: CONTUSION OF RIGHT FOREARM TECHNIQUE: 2 views of the forearm were acquired. COMPARISON: 2 FINDINGS: Bones: No fractures or dislocations. No suspicious bony lesions. Soft tissues: No suspicious soft tissue calcifications or masses. IMPRESSION: No fracture. No osseous lesion. If symptoms and/or clinical concern for pathology persists, further a ssessment with repeat plain film radiographs (7-10 days) or advanced imaging (CT, MR, bone scan) shou ld be considered. Reviewed by: Heike Grewal MD, PhD on 05/16/2023 4:14 PM PDT Approved by: Heike Grewal MD, PhD on 05/16/2023 4:14 PM PDT Station ID: [id number]
--- NOTE | 2023-05-16 16:16 | XRAY Report ---
PROCEDURE: Wrist 4 View RT INDICATIONS: RIGHT WRIST SPRAIN TECHNIQUE: 4 views of the wrist were acquired. COMPARISON: None. FINDINGS: Bones: No fractures or dislocations. No suspicious bony lesions. First CMC and triscaphe joint oste oarthritis Soft tissues: No suspicious soft tissue calcifications or masses. IMPRESSION: No fracture. No acute osseous lesion. If symptoms and/or clinical concern for pathology persists, fur ther assessment with repeat plain film radiographs (7-10 days) or advanced imaging (CT, MR, bone scan ) should be considered. Reviewed by: Heike Grewal MD, PhD on 05/16/2023 4:14 PM PDT Approved by: Heike Grewal MD, PhD on 05/16/2023 4:14 PM PDT Station ID: [id number]
== END 2023-05-16 23:59 | disposition home or self-care (01) ==
LOC: DI.S 08:00
PROVIDERS: ATTEND Physician Assistant Medical
DX: S50.11XA Contusion of right forearm, initial encounter (principal); S63.8X1A Sprain of other part of right wrist and hand, initial encounter

== ENCOUNTER 2023-10-07 20:37 | Outpatient (CLI) | payer MEDICARE, OTHER | END 2023-10-07 20:38 | disposition left against medical advice (07) | LOC: EMS 20:37 | DX: R07.9 Chest pain, unspecified (principal); R10.13 Epigastric pain; M54.6 Pain in thoracic spine; M25.512 Pain in left shoulder ==

== ENCOUNTER 2023-10-23 13:57 | Outpatient (CLI) | payer MEDICARE, OTHER ==
--- NOTE | 2023-10-23 16:06 | DEXA Report ---
PROCEDURE: Dexa Spine and/or Hip INDICATIONS: SCREENING FOR OSTEOPOROSIS TECHNIQUE: Dual energy x-ray absorptiometry (DXA) was performed on a [employer] System. Regions measur ed are the AP Spine, femoral neck, and if needed forearm. COMPARISON: DEXA 12/06/2017 FINDINGS: Lumbar Spine: Not obtained Left Femoral Neck: Bone Mineral Density: 0.865 g/cm/cm, T score: -1.2 compared to -1.0. Left Hip: Bone Mineral Density: 0.86 g/cm/cm,T score: -1.0 compared to -0.8. Left Forearm: Bone Mineral Density: 0.571 g/cm/cm, T score: -3.5 compared to -2.3. (T score greater or equal to -1.0: NORMAL) (T score from -1.1 to -2.4: OSTEOPENIA) (T score less than or equal to -2.5 to: OSTEOPOROSIS) Impression: By WHO criteria, this patient has osteoporosis progressive compared to prior exam. Minimal osteopenia is present. Patients with diagnosis of osteoporosis or osteopenia should have regular bone mineral density assess ment. For those eligible for Medicare, routine testing is allowed once every 2 years. Testing frequ ency can be increased for patients who have rapidly progressing disease or for those who are receivin g medical therapy to restore bone mass. Reviewed by: Chacha Schultz MD on 10/23/2023 4:05 PM PST Approved by: Chacha Schultz MD on 10/23/2023 4:05 PM PST Station ID: [id number]
--- NOTE | 2023-10-23 16:07 | DEXA Report ---
PROCEDURE: Dexa Forearm INDICATIONS: UNUSABLE SPINE TECHNIQUE: Bone mineral density calculations were obtained of the femoral neck/head as well as forear m. COMPARISON: None. FINDINGS: Lumbar Spine: Not obtained Left Femoral Neck: Bone Mineral Density: 0.865 g/cm/cm, T score: -1.2 compared to -1.0. Left Hip: Bone Mineral Density: 0.86 g/cm/cm,T score: -1.0 compared to -0.8. Left Forearm: Bone Mineral Density: 0.571 g/cm/cm, T score: -3.5 compared to -2.3. (T score greater or equal to -1.0: NORMAL) (T score from -1.1 to -2.4: OSTEOPENIA) (T score less than or equal to -2.5 to: OSTEOPOROSIS) Impression: By WHO criteria, this patient has osteoporosis progressive compared to prior exam. Minimal osteopenia is present. Reviewed by: Chacha Schultz MD on 10/23/2023 4:06 PM PST Approved by: Chacha Schultz MD on 10/23/2023 4:06 PM PST Station ID: [id number]
--- NOTE | 2023-10-23 16:52 | CT Report ---
PROCEDURE: Lung Cancer Screen INDICATIONS: LUNG CA SCREENING TECHNIQUE: A CT scan of the chest was performed. Intravenous contrast media was not administered. Images were re corded and evaluated at appropriate window settings. Reformats: axial MIP of the chest, coronal and s agittal. For radiation dose reduction, the following was used: automated exposure control, adjustment of mA and/or kV according to patient size. COMPARISON: Chest x-ray 12/14/2022. FINDINGS: Image quality: Excellent. Lungs and pleura: No pleural effusions. No pneumothorax. Right lower lobe pulmonary nodule measuring 5 mm (4/59). Lingular nodule measuring 5 mm (4/67). Multiple additional micronodules measuring 2 mm or less. Mild nodularity within the lingula which may be infectious or inflammatory in etiology. Mediastinum: Heart size is normal. Severe coronary calcifications. No pericardial effusion. No large vessel abnormality. No mediastinal adenopathy by size criteria. Chest wall and lower neck: Thyroid is unremarkable. No axillary or supraclavicular adenopathy by size . Bilateral breast implants are noted. Bones: No aggressive osseous abnormality. Postsurgical changes in the bilateral shoulders. Degenerati ve changes of the spine. Partially visualized lumbar spine posterior fixation hardware. Upper Abdomen: Small hiatal hernia. Postsurgical changes in the stomach, appears to be [place] bypass. Streak artifact from lumbar spine hardware limits evaluation of the upper abdomen. IMPRESSION: 1.Pulmonary nodules as above measuring up to 5 mm. 2.Mild nodularity within the lingula, may be infectious or inflammatory etiology. Attention on follow -up. 3.Severe coronary artery calcifications. Lung RAD: 3 - Probably Benign. Recommendation: Continue screening in 6 Months with LDCT Reviewed by: Giovani Shine MD on 10/23/2023 4:51 PM PST Approved by: Giovani Shine MD on 10/23/2023 4:51 PM PST Station ID: [id number]
== END 2023-10-23 13:58 | disposition home or self-care (01) ==
LOC: DI 13:57
PROVIDERS: ATTEND Registered Nurse
DX: Z12.2 Encounter for screening for malignant neoplasm of respiratory organs (principal); R91.8 Other nonspecific abnormal finding of lung field; I25.10 Atherosclerotic heart disease of native coronary artery without angina pectoris; M81.0 Age-related osteoporosis without current pathological fracture; Z78.0 Asymptomatic menopausal state; Z87.891 Personal history of nicotine dependence

== ENCOUNTER 2023-12-03 09:47 | Outpatient (CLI) | payer MEDICARE, OTHER ==
[2023-12-03 14:48] LABS: BASOPHILS % (AUTO) 0.6 %; EOSINOPHILS % (AUTO) 0.4 %; HCT - HEMATOCRIT 38.3 % (37.0-47.0); HGB - HEMOGLOBIN 12.1 g/dL (12.0-16.0); LYMPHOCYTES # (AUTO) 1.4 10^3/uL (1.5-3.5); LYMPHOCYTES % (AUTO) 28.9 %; MEAN CORPUSCULAR HEMOGLOBIN 31.4 pg (27.0-31.0); MEAN CORPUSCULAR HGB CONC 31.6 g/dL (32.0-36.0); MEAN CORPUSCULAR VOLUME 99.5 fL (81.0-99.0); MEAN PLATELET VOLUME 10.2 fL (7.9-10.8); MONOCYTES # (AUTO) 0.2 10^3/uL (0.0-1.0); MONOCYTES % (AUTO) 4.1 %; NEUTROPHILS # (AUTO) 3.2 10^3/uL (1.5-6.6); NEUTROPHILS % (AUTO) 65.8 %; PLT - PLATELET COUNT 168 10^3/uL (130-450); RED BLOOD COUNT 3.85 10^6/uL (4.20-5.40); RED CELL DISTRIBUTION WIDTH 13.7 % (12.0-15.0); WHITE BLOOD COUNT 4.9 x10^3/uL (4.8-10.8)
[2023-12-03 16:01] LABS: INR 1.6 (0.8-1.2); PT - PROTHROMBIN TIME 17.3 secs (9.9-12.6)
[2023-12-03 16:02] LABS: CALCIUM 9.9 mg/dL (8.5-10.3); CREATININE 0.9 mg/dL (0.6-1.3); POTASSIUM 4.6 mmol/L (3.5-4.5)
== END 2023-12-03 09:48 | disposition home or self-care (01) ==
LOC: LAB.S 09:47
PROVIDERS: ATTEND Specialist
DX: I25.10 Atherosclerotic heart disease of native coronary artery without angina pectoris (principal)
CPT/HCPCS: 36415; 80048; 83880; 85025; 85610

== ENCOUNTER 2024-01-29 13:00 | Outpatient (CLI) | payer MEDICARE, OTHER | END 2024-01-29 13:01 | disposition home or self-care (01) | LOC: LAB.S 13:00 | PROVIDERS: ATTEND Specialist | DX: I25.10 Atherosclerotic heart disease of native coronary artery without angina pectoris (principal) | CPT/HCPCS: 36415; 83880 ==

== ENCOUNTER 2024-02-11 10:48 | Outpatient (CLI) | payer MEDICARE, OTHER ==
[2024-02-11 14:22] LABS: BASOPHILS % (AUTO) 0.9 %; EOSINOPHILS % (AUTO) 0.9 %; HCT - HEMATOCRIT 34.3 % (37.0-47.0); HGB - HEMOGLOBIN 11.3 g/dL (12.0-16.0); LYMPHOCYTES % (AUTO) 46.8 %; MEAN CORPUSCULAR HEMOGLOBIN 34.2 pg (27.0-31.0); MEAN CORPUSCULAR HGB CONC 32.9 g/dL (32.0-36.0); MEAN CORPUSCULAR VOLUME 103.9 fL (81.0-99.0); MEAN PLATELET VOLUME 10.5 fL (7.9-10.8); MONOCYTES % (AUTO) 4.3 %; NEUTROPHILS % (AUTO) 46.7 %; PLT - PLATELET COUNT 68 10^3/uL (130-450); RED CELL DISTRIBUTION WIDTH 15.5 % (12.0-15.0); WHITE BLOOD COUNT 2.3 x10^3/uL (4.8-10.8)
[2024-02-11 14:26] LABS: ABNORMAL LYMPHS % (MANUAL) 0 %; BAND NEUTROPHILS % (MANUAL) 0 %
[2024-02-11 14:49] LABS: % IRON SATURATION 52 % (20-50); ALBUMIN 4.2 g/dL (3.2-5.5); ALBUMIN/GLOBULIN RATIO 1.6 (1.0-2.2); ALKALINE PHOSPHATASE 95 IU/L (42-121); ALT ALANINE AMINOTRANSFERASE 32 IU/L (10-60); AST ASPARTATE AMINOTRANSFERASE 34 IU/L (10-42); BILIRUBIN,TOTAL 0.8 mg/dL (0.2-1.0); BUN - BLOOD UREA NITROGEN 18 mg/dL (6-20); CALCIUM 9.6 mg/dL (8.5-10.3); CARBON DIOXIDE - CO2 29 mmol/L (21-32); CHLORIDE 104 mmol/L (101-111); CHOL/HDL RATIO 2.3 (<4.4); CHOLESTEROL 138 mg/dL; CREATININE 0.8 mg/dL (0.6-1.3); GFR - MDRD 71 (>89); GLUCOSE 90 mg/dL (74-104); HDL CHOLESTEROL 60 mg/dL; IRON 176 ug/dL (50-212); LDL CHOLESTEROL,CALCULATED 58 mg/dL; SODIUM 138 mmol/L (135-145); TOTAL IRON BINDING CAPACITY 337 ug/dL (250-450); TOTAL PROTEIN 6.8 g/dL (6.4-8.9); TRANSFERRIN 241 mg/dL (203-362); TRIGLYCERIDES 101 mg/dL (48-352); VLDL CHOLESTEROL 20 mg/dL
[2024-02-11 15:01] LABS: THYROID STIMULATING HORMONE 2.81 uIU/mL (0.34-5.60)
[2024-02-11 15:09] LABS: FERRITIN 65.5 ng/mL (11.0-306.8)
[2024-02-11 15:32] LABS: LYMPHOCYTES # (MANUAL) 1.2 10^3/uL (1.5-3.5); LYMPHOCYTES % (MANUAL) 41 %; MONOCYTES # (MANUAL) 0.1 10^3/uL (0.0-1.0); REACTIVE LYMPHS % (MANUAL) 10 %
[2024-02-11 15:33] LABS: DIFFERENTIAL COMMENT MANUAL DIFFERENTIAL; PLATELET ESTIMATE, MANUAL DECREASED (<130,000) (NORMAL); PLATELET MORPHOLOGY NORMAL APPEARANCE (NORMAL)
== END 2024-02-11 10:49 | disposition home or self-care (01) ==
LOC: LAB.S 10:48
PROVIDERS: ATTEND Nurse Practitioner Family
DX: E03.9 Hypothyroidism, unspecified (principal); E53.8 Deficiency of other specified B group vitamins; I25.10 Atherosclerotic heart disease of native coronary artery without angina pectoris; I10 Essential (primary) hypertension; E61.1 Iron deficiency
CPT/HCPCS: 36415; 80053; 80061; 82607; 82728; 82746; 83540; 83721; 84439; 84443; 84466; 85025

== ENCOUNTER 2024-02-13 10:54 | Outpatient (CLI) | payer MEDICARE, OTHER ==
[2024-02-13] MEDS ORDERED: DIATRIZOATE MEGLU/DIATRIZO SOD 30 ML BOTTLE PO ONE (11:33)
[2024-02-13] MEDS ORDERED: iohexoL-300 100 ML VIAL ONE (11:33)
[2024-02-13] MEDS: iohexoL-300 100 ML VIAL IVP ONE (14:03)
[2024-02-13] MEDS: DIATRIZOATE MEGLU/DIATRIZO SOD 30 ML BOTTLE PO ONE (14:04)
--- NOTE | 2024-02-13 15:29 | CT Report ---
PROCEDURE: Abdomen/Pelvis W INDICATIONS: LLQ ABD PAIN CONTRAST: Omni 300 100ml TECHNIQUE: After the administration of intravenous contrast, a CT scan of the abdomen and pelvis was performed. Images were recorded and evaluated at appropriate window settings. Reformats: coronal and sagittal. F or radiation dose reduction, the following was used: automated exposure control, adjustment of mA and /or kV according to patient size. COMPARISON: 08/11/2017 FINDINGS: Image quality: Diagnostic. Lower chest: Clear lung bases. Partially imaged bilateral breast implants. Normal size heart. Small h iatal hernia with postsurgical changes. Liver: Mild steatosis. No solid mass. Gallbladder: Surgically absent. Biliary tree: Moderate intra and extrahepatic biliary dilatation including the common duct measuring up to 1.3 cm in diameter. Tapering at the ampulla is seen. No visible calcifications. Spleen: No splenomegaly. Pancreas: Mild proximal pancreatic ductal dilatation measuring up to 4 mm. Pancreas otherwise appears normal. Adrenals: No adrenal nodule. Kidneys and ureters: Symmetric enhancement. No hydronephrosis or nephrolithiasis. No solid mass or cy st requiring follow-up. No hydroureter. Stomach, bowel and peritoneum: Increased quantity of solid stool throughout the colon. No wall thicke malik or significant diverticulosis. Surgery of prior gastric bypass. Small bowel loops are normal [place]. No pathologic free fluid. Lymph nodes: No central or retroperitoneal adenopathy. Vessels: Normal caliber abdominal aorta, IVC, and portal vein. Mild abdominal aortic atherosclerosis. Patent portal vein. PELVIS Reproductive organs: Surgically absent. Bladder: Normal. Pelvic lymph nodes: No pelvic adenopathy by size criteria. Bones: No suspicious bone lesions. There is posterior fusion and interbody disc spacers throughout th e lumbar spine. Other: No significant ventral or inguinal hernia. IMPRESSION: Colonic obstipation. No other explanation for left lower quadrant pain seen. Chronic biliary tree ductal dilatation, likely physiologic postcholecystectomy. Correlate with LFTs t o determine if there is clinical significance. There is mild pancreatic ductal dilatation, new since the prior exam. Consider MRCP for further mali cterization. Reviewed by: Loraine Vale MD on 02/13/2024 3:28 PM PDT Approved by: Loraine Vale MD on 02/13/2024 3:28 PM PDT Station ID: [id number]
== END 2024-02-13 10:55 | disposition home or self-care (01) ==
LOC: DI 10:54
PROVIDERS: ATTEND Nurse Practitioner
DX: R10.32 Left lower quadrant pain (principal); R19.5 Other fecal abnormalities; K59.00 Constipation, unspecified; K86.89 Other specified diseases of pancreas; Z90.49 Acquired absence of other specified parts of digestive tract
CPT/HCPCS: 74177; Q9963; Q9967

== ENCOUNTER 2024-02-15 23:59 | Emergency (ER) | payer MEDICARE, OTHER ==
[2024-02-16 00:41] LABS: BASOPHILS % (AUTO) 0.5 %; HCT - HEMATOCRIT 29.6 % (37.0-47.0); HGB - HEMOGLOBIN 9.8 g/dL (12.0-16.0); LYMPHOCYTES # (AUTO) 0.9 10^3/uL (1.5-3.5); LYMPHOCYTES % (AUTO) 43.4 %; MEAN CORPUSCULAR HEMOGLOBIN 34.3 pg (27.0-31.0); MEAN CORPUSCULAR HGB CONC 33.1 g/dL (32.0-36.0); MEAN CORPUSCULAR VOLUME 103.5 fL (81.0-99.0); MEAN PLATELET VOLUME 10.2 fL (7.9-10.8); MONOCYTES # (AUTO) 0.1 10^3/uL (0.0-1.0); MONOCYTES % (AUTO) 5.6 %; PLT - PLATELET COUNT 54 10^3/uL (130-450); RED BLOOD COUNT 2.86 10^6/uL (4.20-5.40); RED CELL DISTRIBUTION WIDTH 15.5 % (12.0-15.0)
[2024-02-16 00:54] LABS: ALBUMIN 3.8 g/dL (3.2-5.5); ALBUMIN/GLOBULIN RATIO 1.8 (1.0-2.2); ALKALINE PHOSPHATASE 93 IU/L (42-121); ALT ALANINE AMINOTRANSFERASE 19 IU/L (10-60); AST ASPARTATE AMINOTRANSFERASE 21 IU/L (10-42); BILIRUBIN,TOTAL 0.4 mg/dL (0.2-1.0); BUN - BLOOD UREA NITROGEN 25 mg/dL (6-20); CALCIUM 9.1 mg/dL (8.5-10.3); CARBON DIOXIDE - CO2 27 mmol/L (21-32); CHLORIDE 106 mmol/L (101-111); ETOH - ETHANOL < 10.0 mg/dL; GFR - MDRD 55 (>89); GLUCOSE 83 mg/dL (74-104); LIPASE 16 U/L (11-82); POTASSIUM 4.3 mmol/L (3.5-4.5); SODIUM 138 mmol/L (135-145); TOTAL PROTEIN 5.9 g/dL (6.4-8.9)
--- NOTE | 2024-02-16 01:00 | ED Physician Documentation ---
History of Present Illness - Stated complaint Stated Complaint: AMS/LEG CRAMPS - Chief complaint Chief Complaint: Ext Problem - History obtained from History obtained from: Patient, Family - Additonal information Additional information: HPI from patient. Patient c/o severe bilateral leg muscle cramps, episodic since earlier this evening. No ameliorating factors. Denies h/o similar problem/pain. She says the spasms involve the length of the legs but predominantly the calves and thighs, lasting as long as 30-45 minutes. The initial episode occurred when trying to stand from lying down position, with subsequent episodes triggered with most movement of either leg. Denies numbness, weakness, incontinence of bowel/bladder. Has upper/middle back pain that is chronic; no new back pain c/o. On ROS, she says she has mild generalized VELASQUEZ, episodic visual changes (intermittent blurry and/or double vision) x 1-2 days. says patient was recently told she is going to be referred to a appeals examiner/oncologist due to abnormal blood work performed a few days ago. Denies chest pain, dyspnea, abdominal pain, n/v. Review of Systems Constitutional: reports: Reviewed and negative Eyes: reports: Decreased vision (intermittent/episodic but denies current visual changes) Cardiac: reports: Reviewed and negative Respiratory: reports: Reviewed and negative GI: reports: Reviewed and negative Skin: reports: Reviewed and negative Musculoskeletal: reports: Back pain, Extremity pain. denies: Extremity swelling Neurologic: reports: Headache. 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 : None HEENT: None Psych: Depression, Anxiety, Panic attacks, ADD/ADHD Musculoskeletal: Fibromyalgia, Chronic back pain Derm: None - Past Surgical History Past Surgical History: Yes General: Cholecystectomy, Appendectomy, Gastric surgery Ortho: Knee replacement, Shoulder arthroplasty, Carpal Tunnel surgery, Spine surgery /HUMAN FACTORS ENGINEER: Hysterectomy HEENT: Cataracts - Present Medications Home Medications: Ambulatory Orders Medication Instructions Recorded Confirmed Dextroamphetamine/Amphetamine 20 mg PO BID 06/14/16 02/16/24 [Adderall Xr 20 mg Capsule] Oxycodone HCl/Acetaminophen 1 each PO TID #30 tablet 06/02/17 02/16/24 [Percocet 7.5-325 mg Tablet] Albuterol Sulf [Ventolin Hfa 1 - 2 puffs INH Q4HR PRN #1 gm 04/08/22 02/16/24 Inhaler] Cannabidiol (Cbd) [Epidiolex] 67 mg PO DAILY 02/16/24 02/16/24 LORazepam [Ativan] 0.5 - 1 mg PO Q6H PRN #14 tablet 02/16/24 Levothyroxine Sodium 300 mcg PO DAILY 02/16/24 02/16/24 Metoprolol Succinate [Toprol Xl] 25 mg PO DAILY 02/16/24 02/16/24 Pramipexole Di-HCl [Mirapex ER] 1 tab PO DAILY 02/16/24 02/16/24 Rivaroxaban [Xarelto] 20 mg PO DAILY 02/16/24 02/16/24 - Allergies Allergies/Adverse Reactions: Allergies Allergy/AdvReac Type Severity Reaction Status Date / Time Penicillins Allergy Intermediate Hives Verified 02/16/24 00:13 - Social History Does the pt smoke?: No Smoking Status: Never smoker Does the pt drink ETOH?: Yes Does the pt have substance abuse?: No - Immunizations Immunizations are current?: Yes - POLST Patient has POLST: No PD ED PE NORMAL - Vitals Vital signs reviewed: Yes - General General: Alert and oriented X 3, Well developed/nourished, Other (appears mildly anxious; fleeting eye contact; bilateral occulogyric eye movements with lip-s macking) - HEENT HEENT: Atraumatic, PERRL, EOMI - Cardiac Cardiac: RRR, No murmur - Respiratory Respiratory: No respiratory distress, Clear bilaterally - Abdomen Abdomen: Normal bowel sounds, Soft, Non tender, Non distended - Neuro Neuro: Alert and oriented X 3, 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, No motor deficit, No sensory deficit, Normal speech Eye Opening: Spontaneous Motor: Obeys Commands Verbal: Oriented GCS Score: 15 Results - Vitals Vitals: Vital Signs - 24 hr 02/16/24 02/16/24 02/16/24 03:11 04:04 04:15 Temperature 36.5 C 36.4 C L 36.8 C Heart Rate 77 87 83 Respiratory 18 20 18 Rate Blood Pressure 98/75 94/58 L 100/60 O2 Saturation 97 96 99 Oxygen O2 Source Room air - Labs Labs: Laboratory Tests 02/16/24 02/16/24 02/16/24 00:24 00:24 00:24 WBC 2.0 L* RBC 2.86 L Hgb 9.8 L Hct 29.6 L MCV 103.5 H MCH 34.3 H MCHC 33.1 RDW 15.5 H Plt Count 54 L MPV 10.2 Neut # (Auto) 1.0 L Lymph # (Auto) 0.9 L [place] # (Auto) 0.1 Eos # (Auto) 0.0 Baso # (Auto) 0.0 Absolute Nucleated RBC 0.00 Band Neuts % (Manual) Not Reportable Abnorm Lymph % (Manual) Not Reportable Nucleated RBC % 0.0 Neutrophils # (Manual) Not Reportable Lymphocytes # (Manual) Not Reportable Monocytes # (Manual) Not Reportable Eosinophils # (Manual) Not Reportable Basophils # (Manual) Not Reportable Differential Comment MANUAL=AUTO DIFF Platelet Estimate DECREASED (<130,000) Platelet Morphology NORMAL APPEARANCE Sodium 138 Potassium 4.3 Chloride 106 Carbon Dioxide 27 Anion Gap 5.0 L BUN 25 H Creatinine 1.0 Estimated GFR (MDRD) 55 L Glucose 83 Calcium 9.1 Magnesium 2.0 Total Bilirubin 0.4 AST 21 ALT 19 Alkaline Phosphatase 93 Total Protein 5.9 L Albumin 3.8 Globulin 2.1 Albumin/Globulin Ratio 1.8 Lipase 16 Urine Color Urine Clarity Urine pH Ur Specific [place] Urine Protein Urine Glucose (UA) Urine Ketones Urine Occult Blood Urine Nitrite Urine Bilirubin Urine Urobilinogen Ur Leukocyte Esterase Ur Microscopic Review Urine Culture Comments Urine Opiates Screen Ur Buprenorphine Scrn Ur Oxycodone Screen Urine Methadone Screen Ur Barbiturates Screen Ur Tricyclics Screen Ur Phencyclidine Scrn Ur Amphetamine Screen U Methamphetamines Scrn U Benzodiazepines Scrn Urine Cocaine Screen U Cannabinoids Screen Ur Drug Screen Comment Ethyl Alcohol < 10.0 02/16/24 01:37 WBC RBC Hgb Hct MCV MCH MCHC RDW Plt Count MPV Neut # (Auto) Lymph # (Auto) [place] # (Auto) Eos # (Auto) Baso # (Auto) Absolute Nucleated RBC Band Neuts % (Manual) Abnorm Lymph % (Manual) Nucleated RBC % Neutrophils # (Manual) Lymphocytes # (Manual) Monocytes # (Manual) Eosinophils # (Manual) Basophils # (Manual) Differential Comment Platelet Estimate Platelet Morphology Sodium Potassium Chloride Carbon Dioxide Anion Gap BUN Creatinine Estimated GFR (MDRD) Glucose Calcium Magnesium Total Bilirubin AST ALT Alkaline Phosphatase Total Protein Albumin Globulin Albumin/Globulin Ratio Lipase Urine Color YELLOW Urine Clarity CLEAR Urine pH 6.0 Ur Specific [place] 1.025 Urine Protein NEGATIVE Urine Glucose (UA) NEGATIVE Urine Ketones NEGATIVE Urine Occult Blood NEGATIVE Urine Nitrite NEGATIVE Urine Bilirubin NEGATIVE Urine Urobilinogen 1 (NORMAL) Ur Leukocyte Esterase NEGATIVE Ur Microscopic Review NOT INDICATED Urine Culture Comments NOT INDICATED Urine Opiates Screen NEGATIVE Ur Buprenorphine Scrn NEGATIVE Ur Oxycodone Screen POSITIVE H Urine Methadone Screen NEGATIVE Ur Barbiturates Screen NEGATIVE Ur Tricyclics Screen NEGATIVE Ur Phencyclidine Scrn NEGATIVE Ur Amphetamine Screen POSITIVE H U Methamphetamines Scrn NEGATIVE U Benzodiazepines Scrn NEGATIVE Urine Cocaine Screen NEGATIVE U Cannabinoids Screen POSITIVE H Ur Drug Screen Comment CUTOFF CONC BELOW: Ethyl Alcohol - Rads (name of study) CTH Relevant Findings:: Prelim report reviewed, See rad report PD Medical Decision Making - ED course Complexity details: reviewed results, re-evaluated patient, considered differential, d/w patient, d/w family ED course: CBC is concerning for pancytopenia which appears to be new-onset. WBC 2.0, hgb 9.8, platelets 59. outpatient results from 02/11/24 were 2.3/11.5/68 (platelets had been normal previous to 02/11/24, and WBC normal with occasional results in the 3.0-5.0 range). She is afebrile. CTH unremarkable (undertaken due to her odd facial movements (see above, physical exam)). Unremarkable ER abdominal panel and normal magnesium level. She is given 1 mg IV lorazepam and 1 liter IV NS. On reevaluation, she is sleeping deeply but awakens with verbal combined with repeated tactile stimulation, and wakens to AAOx3 level such that she is conversant and ap propriate, able to tell me she feels much better and no longer having leg cramps. The occulogyric movements and lip-smacking have also resolved. Results d/w patient and spouse (in ED at bedside). While the cause of her symptoms is not apparent at this time, the pancytopenia is most concerning and thus I stressed the importance of seeking expedited follow up with hem/onc, the best route to which might be recontacting PCP Saturday to update them on these test results. Return precautions carefully reviewed, encouraged to return to ED for any worsening of symptoms. E-prescribed short course of PRN 0.5mg lorazepam. Departure - Departure Disposition: 01 Home, Self Care Clinical Impression: Muscle cramps, Pancytopenia Condition: Good Instructions: ED Spasm Muscle Prescriptions: LORazepam [Ativan] 0.5 - 1 mg PO Q6H PRN #14 tablet PRN Reason: Spasms Comments: The cause of your muscle spasms/cramps is not apparent at this time. The most notable and concerning abnormalities on tonight's tests are a low white blood cell count, red blood cell count, and platelet level. While these are concerning findings, they would not explain your muscle cramps. You have indicated that your primary doctor has initiated the process of referral to an oncologist/appeals examiner. I recommend that you recontact your primary care provider on Saturday when the office reopens and let them know that you were in the emergency department over the weekend and that your blood tests are notably worse compared to the tests you had a few days ago; hopefully, your primary care provider can reevaluate you in the next few days and/or expedite the process of referral to the appeals examiner. I am providing you with a prescription for lorazepam (Ativan). This is often used for anxiety, but it also has a strong muscle-relaxant property and this is why you are being prescribed this medication. Take it as needed per the label instructions for muscle cramps. Discharge Date/Time: 02/16/24 04:20
[2024-02-16 01:44] LABS: DIFFERENTIAL COMMENT MANUAL=AUTO DIFF; PLATELET ESTIMATE, MANUAL DECREASED (<130,000) (NORMAL); PLATELET MORPHOLOGY NORMAL APPEARANCE (NORMAL)
[2024-02-16] MEDS: LORazepam 2 MG/ML VIAL IVP STA ×2 (01:49→01:55)
[2024-02-16] MEDS: SODIUM CHLORIDE 0.9% 1,000 ML IV STA (01:52)
[2024-02-16 02:03] LABS: BILIRUBIN,URINE NEGATIVE (NEGATIVE); GLUCOSE, URINE (UA) NEGATIVE (NEGATIVE); KETONES,URINE (UA) NEGATIVE (NEGATIVE); LEUKOCYTE ESTERASE, URINE NEGATIVE (NEGATIVE); NITRITE,URINE NEGATIVE (NEGATIVE); OCCULT BLOOD,URINE NEGATIVE (NEGATIVE); PROTEIN,URINE NEGATIVE (NEGATIVE); UROBILINOGEN,URINE 1 (NORMAL) E.U./dL (NORMAL)
[2024-02-16 02:07] LABS: CLARITY,URINE CLEAR (CLEAR)
[2024-02-16 02:14] LABS: COCAINE SCREEN URINE NEGATIVE (NEGATIVE); THC CANNABINOID SCREEN, URINE POSITIVE (NEGATIVE)
[2024-02-16 02:15] LABS: AMPHETAMINE SCREEN,URINE POSITIVE (NEGATIVE); BARBITURATE SCREEN,UR NEGATIVE (NEGATIVE); BENZODIAZEPINES SCREEN, URINE NEGATIVE (NEGATIVE); BUPRENORPHINE SCREEN, URINE NEGATIVE (NEGATIVE); METHADONE SCREEN, URINE NEGATIVE (NEGATIVE); METHAMPHETAMINES SCREEN, URINE NEGATIVE (NEGATIVE); OPIATE SCREEN, URINE NEGATIVE (NEGATIVE); OXYCODONE SCREEN, URINE POSITIVE (NEGATIVE); TRICYCLIC ANTIDEPRESSANT,URINE NEGATIVE (NEGATIVE)
[2024-02-16 04:32] VITALS: BP 100/60; O2SAT 99
--- NOTE | 2024-02-16 07:10 | CT Report ---
PROCEDURE: Head WO INDICATIONS: visual changes, thrombocytopenia, takes xarelto TECHNIQUE: Noncontrast 4.5 mm thick angled axial sections acquired from the foramen magnum to the vertex. For r adiation dose reduction, the following was used: automated exposure control, adjustment of mA and/or kV according to patient size. COMPARISON: 07/15/2018. FINDINGS: Image quality: Excellent. CSF spaces: Basal cisterns are patent. No extra-axial fluid collections. Ventricles are normal in size and shape. Brain: No midline shift. No intracranial masses or hemorrhage. Nails-white matter interface is norm al. Skull and face: Calvarium and visualized facial bones are intact, without suspicious lesions. Sinuses: Visualized sinuses and mastoids are clear. IMPRESSION: No acute intracranial pathology. Findings are concordant with preliminary interpretation provided by [facility]. Reviewed by: Justin Mcarthur MD on 02/16/2024 7:08 AM PDT Approved by: Justin Mcarthur MD on 02/16/2024 7:08 AM PDT Station ID: [id number]
== END 2024-02-16 04:20 | disposition home or self-care (01) ==
LOC: EDUNIT# → ED 23:59
DX: R25.2 Cramp and spasm (principal); D61.818 Other pancytopenia; E03.9 Hypothyroidism, unspecified; Z79.899 Other long term (current) drug therapy; Z79.01 Long term (current) use of anticoagulants
CPT/HCPCS: 36415; 70450; 80053; 80306; 81003; 83690; 83735; 85025; 96374; 99284; G0480; J2060; 81001; 82077; 87086

== ENCOUNTER 2024-02-19 07:46 | Outpatient (CLI) | payer MEDICARE, OTHER ==
[2024-02-19 14:51] LABS: BASOPHILS % (AUTO) 0.5 %; EOSINOPHILS % (AUTO) 0.5 %; HCT - HEMATOCRIT 32.2 % (37.0-47.0); HGB - HEMOGLOBIN 10.5 g/dL (12.0-16.0); LYMPHOCYTES % (AUTO) 40.7 %; MEAN CORPUSCULAR HEMOGLOBIN 34.8 pg (27.0-31.0); MEAN CORPUSCULAR HGB CONC 32.6 g/dL (32.0-36.0); MEAN CORPUSCULAR VOLUME 106.6 fL (81.0-99.0); MEAN PLATELET VOLUME 10.2 fL (7.9-10.8); NEUTROPHILS % (AUTO) 54.3 %; PLT - PLATELET COUNT 51 10^3/uL (130-450); RED BLOOD COUNT 3.02 10^6/uL (4.20-5.40); RED CELL DISTRIBUTION WIDTH 15.9 % (12.0-15.0)
[2024-02-19 15:13] LABS: BAND NEUTROPHILS % (MANUAL) 0 %
[2024-02-19 15:26] LABS: ABNORMAL LYMPHS % (MANUAL) 4 %; LYMPHOCYTES # (MANUAL) 0.8 10^3/uL (1.5-3.5); LYMPHOCYTES % (MANUAL) 38 %; NEUTROPHILS # (MANUAL) 1.1 10^3/uL (1.5-6.6)
[2024-02-19 15:28] LABS: DIFFERENTIAL COMMENT MANUAL DIFFERENTIAL; PLATELET ESTIMATE, MANUAL DECREASED (<130,000) (NORMAL); PLATELET MORPHOLOGY NORMAL APPEARANCE (NORMAL); RBC MORPHOLOGY (MULTIPLE) 1+ ANISOCYTOSIS (NORMAL)
== END 2024-02-19 07:47 | disposition home or self-care (01) ==
LOC: LAB.S 07:46
PROVIDERS: ATTEND Nurse Practitioner Family
DX: D61.818 Other pancytopenia (principal)
CPT/HCPCS: 36415; 85025